=== PATIENT | female | born 1985 | race Caucasian/White ===

== ENCOUNTER → 2024-06-06 | Outpatient (CLI) | payer BC, SELFPAY ==
[2024-06-06 12:55] LABS: Absolute Lymphocyte Count 2.44 X10^3/uL (0.83-4.51); Absolute Neutrophil Count 5.5 X10^3/uL (2.0-7.7); Basophil# 0.06 X10^3/uL; Basophil% 0.7 % (0-1); Eosinophil# 0.14 X10^3/uL; Eosinophils% 1.6 % (0-5); Hematocrit 38.8 % (37-47); Lymphocyte # 2.44 X10^3/ul (0.83-4.51); Lymphocyte % 27.8 % (19-41); Mean Corp Hgb Conc 33.5 g/dL (32-36); Mean Corpuscular Hgb 31.5 pg (27.0-32.0); Mean Corpuscular Volume 93.9 fL (81-99); Mean Platelet Vol. 9.7 fl (6.2-12.0); Monocyte# 0.61 X10^3/uL; Monocyte% 6.9 % (0-10); NRBC Flagged by Analyzer 0 % (0-5); Neutrophil # 5.51 X10^3/uL (2.7-7.7); Neutrophil % 62.8 % (47-70); Platelet Count 350 K/mm3 (150-450); RBC Distribution Width CV 12.5 % (11.6-14.6); RBC Distribution Width SD 42.8 fl (35.1-43.9); Red Blood Count 4.13 M/mm3 (4.2-5.4); White Blood Count 8.8 K/mm3 (4.4-11.0)
[2024-06-06 14:08] LABS: ALB/GLOB Ratio 0.8 RATIO (0.9-2.4); AST(SGOT) 17 U/L (15-37); Alanine Aminotransfer ALT/SGPT 37 U/L (13-56); Albumin, Serum 3.5 g/dL (3.2-5.0); Alkaline Phosphatase 135 U/L (45-117); Anion Gap 9 (5-15); BUN 12 mg/dL (7-18); BUN/Creat Ratio 12.9 RATIO (10-20); Calcium,Total 8.8 mg/dL (8.5-10.1); Chloride 106 mmol/L (98-107); Cholesterol 196 mg/dL (200); Creatinine, Serum 0.93 mg/dL (0.55-1.02); EST Glomerular Filtration Rate 71 mL/min (>60); Est Glom Filt Rate - Afr Amer 86 mL/min (>60); Globulin 4.2 g/dL (2.2-4.2); Glucose 118 mg/dL (74-106); High Density Lipoprotein 58 mg/dL; Potassium 3.7 mmol/L (3.5-5.1); Protein, Total 7.7 g/dL (6.4-8.2); Sodium Level 137 mmol/L (136-145); T4 Free Direct 0.99 ng/dL (0.76-1.46); Triglycerides 115 mg/dL; Very Low Density Lipoprotein 23 mg/dL (5-40)
[2024-06-06 17:00] LABS: Hemoglobin A1c 5.4 % (3.8-5.6)
== END | disposition home or self-care (01) ==
LOC: BFHLAB 08:49
PROVIDERS: PCP Family Medicine; Visit Provider Family Medicine
DX: Z00.00 Encounter for general adult medical examination without abnormal findings (principal); R63.5 Abnormal weight gain
CPT/HCPCS: 36415; 80053; 80061; 82533; 83036; 84439; 84443; 85025

== ENCOUNTER → 2025-02-13 | Outpatient (CLI) | payer BC, SELFPAY ==
[2025-02-13 15:13] LABS: Hematocrit 41.0 % (37-47); Hemoglobin 14.2 g/dL (12.0-15.0); Immature Granulocytes Count 0.030 X10^3/uL (0.0-0.0); Mean Corp Hgb Conc 34.6 g/dL (32-36); Mean Corpuscular Volume 94.3 fL (81-99); Mean Platelet Vol. 10.0 fl (6.2-12.0); NRBC Flagged by Analyzer 0 % (0-5); Platelet Count 369 K/mm3 (150-450); RBC Distribution Width CV 11.6 % (11.6-14.6); RBC Distribution Width SD 39.9 fl (35.1-43.9); Red Blood Count 4.35 M/mm3 (4.2-5.4); White Blood Count 10.9 K/mm3 (4.4-11.0)
[2025-02-13 15:30] LABS: Barbiturate Urine NEGATIVE (< 200 ng/mL); Benzodiazepine Urine NEGATIVE (< 200 ng/mL); PCP Urine NEGATIVE (< 25 ng/mL); THC Urine NEGATIVE (< 50 ng/mL)
[2025-02-13 15:32] LABS: AST(SGOT) 25 U/L (<=31); Alanine Aminotransfer ALT/SGPT 21 U/L (<=34); Albumin, Serum 4.4 g/dL (3.5-5.0); Alkaline Phosphatase 85 U/L (35-104); Anion Gap 12 (5-15); BUN 6 mg/dL (4-19); BUN/Creat Ratio 4.7 RATIO (10-20); Calcium,Total 9.6 mg/dL (7.6-11.0); Carbon Dioxide 23.6 mmol/L (21.0-32.0); Chloride 100 mmol/L (98-108); Cholesterol 165 mg/dL (<=200); Globulin 3.4 g/dL (2.2-4.2); Glucose 80 mg/dL (70-99); Low Density Lipoprotein Calc. 99 mg/dL; Potassium 4.0 mmol/L (3.3-5.1); Triglycerides 67 mg/dL; Very Low Density Lipoprotein 13 mg/dL (5-40); Vitamin D,25 Hydroxy 66.5 ng/mL (30-100); cholesterol:hdl ratio screen 3.13
== END | disposition home or self-care (01) ==
LOC: MTLAB 12:58
PROVIDERS: PCP Family Medicine
DX: F90.0 Attention-deficit hyperactivity disorder, predominantly inattentive type (principal)
CPT/HCPCS: 36415; 80053; 80061; 80307; 82306; 84443; 85025

== ENCOUNTER → 2025-03-13 | Outpatient (CLI) | payer BC, SELFPAY ==
--- NOTE | 2025-03-13 08:43 | EKG12_ITS ---
Test Reason : ADHD Blood Pressure : */* mmHG Vent. Rate : 71 BPM Atrial Rate : 71 BPM P-R Int : 138 ms QRS Dur : 84 ms QT Int : 376 ms P-R-T Axes : 42 71 47 degrees QTcB Int : 408 ms Normal sinus rhythm Normal ECG No previous ECGs available Confirmed by Claudio Valdez ([id number]), index editor REGGIE VIVAS ([id number]) on 03/16/2025 1:08:24 PM Referred By: TRAE IRVING Confirmed By: Claudio Valdez
--- OUTSIDE RECORDS SUMMARY | 2025-03-13 09:04 | XMS RPT_ITS | CCD ---
Author Organization [facility] Care Team Providers Care Operations Advisor Name Role Phone JOEY VALLEJO Unavailable Unavailable ZINNI, JOEY A Unavailable Unavailable ZINNI, JOEY A Unavailable Unavailable ZINNI, OJEY A Unavailable Unavailable ZINNI, JOEY A Unavailable Unavailable ZINNI, JOEY A Unavailable Unavailable ZINNI, JOEY A Unavailable Unavailable GENEVIEVE, JOEY Whitehead Unavailable Unavailable Anna Whittaker MD Primary Care Provider Anna Whittaker MD Primary Care Provider Duc Day DO Primary Care Provider ANNA WHITTAKER Primary Care Unavailable DUC DAY Primary Care Unavailable GUTIERREZ AHUMADA Referring Unavailable DUC DAY Primary Care Unavailable ANNA WHITTAKER Primary Care Unavailable SHAYDUC KWON Primary Care Unavailable SHAY, DUC A Primary Care Unavailable GUTIERREZ AHUMADA Referring Unavailable Shay, Duc Primary Care Unavailable Shay, Duc Attending Unavailable JUSTINA LARKNI Attending Unavailable JUSTINA LARKIN Referring Unavailable Shay, Duc Primary Care Unavailable JUSTINA LARKIN Attending Unavailable JUSTINA LARKIN Referring Unavailable Shay, Duc Primary Care Unavailable Shay, Duc Primary Care Unavailable Shay, Duc Referring Unavailable Camillus, Ammy Attending Unavailable Maame, Ammy Attending Unavailable Camillus, Ammy Referring Unavailable Shay, Duc Primary Care Unavailable Maame, Ammy Referring Unavailable Shay, Duc Primary Care Unavailable Camillus, Ammy Attending Unavailable Judy Del Castillo Attending Unavailable Shay, Duc Primary Care Unavailable Allergies Allergy Classification Reported Allergen(s) Allergy Type Date of Onset Reaction(s) Facility (9 sources) codeine; Translations: [CODEINE] Drug Allergy 06-24-2013 Rash [facility] Other [place] [facility] (9 sources) nortriptyline; Translations: [NORTRIPTYLINE] Drug Allergy 07-03-2013 Unknown [facility] [place] Repository (10 sources) topiramate; Translations: [TOPIRAMATE] Drug Allergy 06-24-2013 Rash [facility] [place] Repository Medications Current Medications Medication Drug Class(es) Dates Sig (Normalized) Sig (Original) acetaminophen 325 mg / butalbital 50 mg / caffeine 40 mg oral tablet (14 sources) Barbiturate, Central Nervous System Stimulant, Methylxanthine Start: 09-08-2016 take 1 tablet by mouth every eight hours as needed acetaminophen 325 mg-caffeine 40 mg-butalbital 50 mg (FIORICET) per tablet Take 1 tablet by mouth every 8 hours as needed for Headache. 30 tablet 1 06/15/2017 Active Comment on above: Take 1 tablet by disha every 8 hours as needed for Headache. amoxicillin 500 mg oral capsule (1 source) Penicillin-class Antibacterial Start: 08-10-2023 End: 08-20-2023 take 1 capsule by mouth twice daily amoxicillin (AMOXIL) 500 mg capsule Take 1 capsule by mouth two times a day for 10 days. 20 capsule 0 08/10/2023 08/20/2023 Active Comment on above: Take 1 capsule by mo [facility] two times a day for 10 days. clonazePAM 1 mg oral tablet (7 sources) Benzodiazepine Start: 06-11-2017 take 1 tablet by mouth four times daily clonazePAM (KLONOPIN) 1 mg tablet Indications: Social anxiety disorder take 1 tablet by mouth four times a day 120 tablet 2 06/11/2017 Active Comment on above: take 1 tablet by disha four times a day doxycycline monohydrate 100 mg oral tablet (1 source) Tetracycline-class Drug Start: 02-25-2024 End: 03-03-2024 take 1 tablet by mouth twice daily doxycycline monohydrate 100 mg tablet Indications: Lower resp. tract infection Take 1 tablet by mouth two times a day for 7 days. 14 tablet 02/25/2024 03/03/2024 Active drospirenone / Ethinyl Estradiol (7 sources) Progestin, Estrogen Start: 11-30-2016 Drospirenone-Ethin yl Estradiol 3-0.03 mg per tablet 1 11/30/2016 Active Start: 11-30-2016 Drospirenone-E thinyl Estradiol 3-0.03 mg per tablet FLUoxetine 40 mg oral capsule (14 sources) Serotonin Reuptake Inhibitor Start: 06-07-2018 take 1 capsule by mouth once daily FLUoxetine HCl (PROZAC) 40 mg capsule TAKE 1 CAPSULE BY MOUTH EVERY DAY 30 capsule 1 06/07/2018 Active Start: 02-19-2017 take 1 capsule by mo uth once daily, then take 2 capsules by mouth once daily FLUoxetine (PROZAC) 20 mg capsule Take 1 capsule by mouth once daily. for two weeks and then increase to two (2) daily (=40 mg ) 60 capsule 1 02/19/2017 Active Comment on above: Take 1 capsule by mo uth once daily. for two weeks and then increase to two (2) daily (=40 mg ) TAKE 1 CAPSULE BY MO UTH EVERY DAY folic acid 1 mg oral tablet (7 sources) Start: take 4 tablets by mouth once daily folic acid 1 mg tablet Take 4 tablets by mouth once daily. 360 tablet 1 10/16/2017 Active Comment on above: Take 4 tablets by mo uth once daily. INTRAUTERINE DEVICE, IUD, INTRAUTERINE (4 sources) INTRAUTERINE DEV ICE, IUD, INTRAUTERINE by INTRAUTERINE route. Active lamoTRIgine 200 mg oral tablet (7 sources) Mood Stabilizer, Anti-epileptic Agent Start: lamoTRIgine (LAMICTAL) 200 mg tablet Take 1.5 tabs AM and 2 tabs PM 315 tablet 02/11/2018 Active Comment on above: Take 1.5 tabs AM and 2 tabs PM lisdexamfetamine dimesylate 70 mg oral capsule (7 sources) Central Nervous System Stimulant Start: take 1 capsule by mouth once daily lisdexamfetamine (VYVANSE) 70 mg capsule Indications: ADHD (attention deficit hyperactivity disorder), combined type Take 1 capsule by mouth once daily for 30 days. Earliest Fill Date: 05/27/17 30 capsule 05/27/2017 Active Comment on above: Take 1 capsule by mo uth once daily for 30 days. Earliest Fill Date: 05/27/17 norethindrone 0.35 mg oral tablet (7 sources) Start: 016 take 1 tablet by mouth once daily Norethindrone, Contraceptive, (DEBLITANE) 0.35 mg tablet Take 1 tablet by mouth once daily. 0 09/02/2015 Active Comment on above: Take 1 tablet by disha th once daily. spironolact/hydrochlorot hiazid (SPIRONOLACTON-HYDROCHLO ROTHIAZ ORAL) (6 sources) spironolact/hydr ochloro thiazid (SPIRONOLACTON-HYDROCHL OROTHIAZ ORAL) Take by mouth. Active spironolact/hydr ochlorothiazid (SPIRONOLACTON-HYDROCHLOROTHIAZ ORAL) Take by mouth. 0 Active Comment on above: Take by mouth. spironolactone 100 mg oral tablet (4 sources) Aldosterone Antagonist Start: 024 take 1 tablet by mouth once spironolactone (ALDACTONE) 100 mg tablet Take 1 tablet by mouth every afternoon. 02/18/2024 Active traZODone hydrochloride 50 mg oral tablet (7 sources) Serotonin Reuptake Inhibitor Start: 018 take 1 tablet by mouth once daily at bedtime traZODone (DESYREL) 50 mg tablet Take 1 tablet by mouth daily at bedtime. 30 tablet 5 05/16/2017 Active Comment on above: Take 1 tablet by disha th daily at bedtime. venlafaxine (6 sources) Serotonin and Norepinephrine Reuptake Inhibitor venlafaxine HCl (EFFEXOR ORAL) Take by mouth. Active venlafaxine HCl (EFFEXOR ORAL) Take by mouth. 0 Active Comment on above: Take by mouth. Problems Active Problems Problem Classification Problem Date Documented Date Episodic/Chronic Anxiety disorders (19 sources) Anxiety; Translations: [Anxiety disorder, unspecified] Onset: 01-06-2014 Resolved: 01-06-2014 11-14-2014 Chronic Attention-deficit, conduct, and disruptive behavior disorders (7 sources) Adult attention deficit hyperactivity disorder ; Translations: [Attention-deficit hyperactivity disorder, unspecified type] Onset: 01-06-2014 01-06-2014 Chronic Attention-deficit, conduct, and disruptive behavior disorders (2 sources) Attention-deficit hyperactivity disorder, predominantly inattentive type; Translations: [Attention-deficit hyperactivity disorder, predominantly inattentive type] Onset: 02-26-2025 Chronic Epilepsy; convulsions (7 sources) Epilepsy; Translations: [Epilepsy, unspecified, not intractable, without status epilepticus] Onset: 01-06-2014 02-10-2015 Chronic Headache; including migraine (7 sources) Migraine without aura; Translations: [Migraine without aura, not intractable, without status migrainosus] Onset: 01-06-2014 01-06-2014 Chronic Mood disorders (7 sources) Recurrent major depression in full remission; Translations: [Major depressive disorder, recurrent, in full remission] Onset: 05-10-2015 05-10-2015 Chronic Other injuries and conditions due to external causes (1 source) Injury of left lower leg; Translations: [Unspecified injury of left lower leg, initial encounter] 04-08-2024 Episodic Other lower respiratory disease (1 source) Cough; Translations: [Acute cough] 02-25-2024 Episodic Other lower respiratory disease (1 source) Lower respiratory tract infection; Translations: [Unspecified acute lower respiratory infection] 02-25-2024 Episodic Other upper respiratory infections (2 sources) Sore throat symptom; Translations: [Acute pharyngitis, unspecified] 02-25-2024 Episodic Unclassified (1 source) Unknown / UNK(Unknown) Onset: 06-21-2017 Past or Other Problems Problem Classification Problem Date Documented Da te Episodic/Chronic Immunizations and screening for infectious disease (3 sources) Patient encounter status; Translations: [Encounter for immunization] Onset: 08-05-2024 01-17-2024 Episodic Other screening for suspected conditions (not mental disorders or infectious disease) (1 source) Encounter for screening mammogram for malignant neoplasm of breast; Translations: [Encounter for screening mammogram for malignant neoplasm of breast] Onset: 06-19-2024 Episodic Results Test Name Value Interpretation Reference Range Facility CBC W/Diff, Automatedon 10-1 Absolute Lymph 2.47 X10 3/uL Normal 0.83-4.51 [facility] Comment on above: Performed By: #### L [id number], L500.4100, L501.9985, L509.6000, L500.4050, L100.0100, L506.0400 #### [facility] [address] [place], [place], [id number] Absolute Neut 7.6 X10 3/uL Normal 2.0-7.7 [facility] Comment on above: Performed By: #### L [id number], L500.4100, L501.9985, L509.6000, L500.4050, L100.0100, L506.0400 #### [facility] [address] [place], [address] Basophils/100 WBC (Bld) 0.5 % Normal 0-1 [facility] Comment on above: Performed By: #### L [id number], L500.4100, L501.9985, L509.6000, L500.4050, L100.0100, L506.0400 #### [facility] [address] [place], [address] Eosinophils/100 WBC (Bld) 0.8 % Normal 0-5 [facility] Comment on above: Performed By: #### L [id number], L500.4100, L501.9985, L509.6000, L500.4050, L100.0100, L506.0400 #### [facility] [address] [place], [address] Erythrocyte distribution width (RBC) [Ratio] 11.6 % Normal 11.6-14.6 [facility] Comment on above: Performed By: #### L 501.9520, L500.4100, L501.9985, L509.6000, L500.4050, L100.0100, L506.0400 #### [facility] [address] [place], [address] Hematocrit (Bld) [Volume fraction] 41.0 % Normal 37-47 [facility] Comment on above: Performed By: #### L [id number], L500.4100, L501.9985, L509.6000, L500.4050, L100.0100, L506.0400 #### [facility] [address] [place], [address] Hemoglobin (Bld) [Mass/Vol] 14.2 g/dL Normal 12.0-15.0 [facility] Comment on above: Performed By: #### L 501.9520, L500.4100, L501.9985, L509.6000, L500.4050, L100.0100, L506.0400 #### [facility] [address] [place], [address] IG% 0.300 Normal 0.0-0.9 [facility] Comment on above: Result Comment: IG% - Immature Granulocytes (promyelocytes, myelocytes and metamyelocytes) > 1% indicates that a LEFT SHIFT is Present. Performed By: #### L 501.9520, L500.4100, L501.9985, L509.6000, L500.4050, L100.0100, L506.0400 #### [facility] [address] [place], [address] Lymphocytes/100 WBC (Bld) 22.6 % Normal 19-41 [facility] Comment on above: Performed By: #### L 501.9520, L500.4100, L501.9985, L509.6000, L500.4050, L100.0100, L506.0400 #### [facility] [address] [place], [address] MCH (RBC) [Entitic mass] 32.6 pg High 27.0-32.0 [facility] Comment on above: Performed By: #### L 501.9520, L500.4100, L501.9985, L509.6000, L500.4050, L100.0100, L506.0400 #### [facility] [address] [place], [address] MCHC (RBC) [Mass/Vol] 34.6 g/dL Normal 32-36 [facility] Comment on above: Performed By: #### L 501.9520, L500.4100, L501.9985, L509.6000, L500.4050, L100.0100, L506.0400 #### [facility] [address] [place], [address] MCV (RBC) [Entitic vol] 94.3 fL Normal 81-99 [facility] Comment on above: Performed By: #### L 501.9520, L500.4100, L501.9985, L509.6000, L500.4050, L100.0100, L506.0400 #### [facility] [address] [place], [address] Monocytes/100 WBC (Bld) 6.3 % Normal 0-10 [facility] Comment on above: Performed By: #### L 501.9520, L500.4100, L501.9985, L509.6000, L500.4050, L100.0100, L506.0400 #### [facility] [address] [place], [address] Neutrophils/100 WBC (Bld) 69.5 % Normal 47-70 [facility] Comment on above: Performed By: #### L 501.9520, L500.4100, L501.9985, L509.6000, L500.4050, L100.0100, L506.0400 #### [facility] [address] [place], [address] Nucleated RBC (Bld) [#/Vol] 0 10*3/uL Normal 0-5 [facility] Comment on above: Performed By: #### L 501.9520, L500.4100, L501.9985, L509.6000, L500.4050, L100.0100, L506.0400 #### [facility] [address] [place], [address] Platelet mean volume (Bld) [Entitic vol] 10.0 fL Normal 6.2-12.0 [facility] Comment on above: Performed By: #### L 501.9520, L500.4100, L501.9985, L509.6000, L500.4050, L100.0100, L506.0400 #### [facility] [address] [place], [address] Platelets (Bld) [#/Vol] 369 10*3/uL Normal 150-450 [facility] Comment on above: Performed By: #### L 501.9520, L500.4100, L501.9985, L509.6000, L500.4050, L100.0100, L506.0400 #### [facility] [address] [place], [address] RBC (Bld) [#/Vol] 4.35 10*6/uL Normal 4.2-5.4 [facility] Comment on above: Performed By: #### L 501.9520, L500.4100, L501.9985, L509.6000, L500.4050, L100.0100, L506.0400 #### [facility] [address] [place], [address] RDW SD 39.9 fl Normal 35.1-43.9 [facility] Comment on above: Performed By: #### L 501.9520, L500.4100, L501.9985, L509.6000, L500.4050, L100.0100, L506.0400 #### [facility] [address] [place], [address] WBC (Bld) [#/Vol] 10.9 10*3/uL Normal 4.4-11.0 [facility] Comment on above: Performed By: #### L 501.9520, L500.4100, L501.9985, L509.6000, L500.4050, L100.0100, L506.0400 #### [facility] [address] [place], [address] Comprehensive Metabolic [facility] 02-13-2025 Albumin [Mass/Vol] 4.4 g/dL Normal 3.5-5.0 [facility] Comment on above: Performed By: #### L 501.9520, L500.4100, L501.9985, L509.6000, L500.4050, L100.0100, L506.0400 #### [facility] [address] [place], [address] Albumin/Globulin [Mass ratio] 1.3 {ratio} Normal 0.9-2.4 [facility] Comment on above: Performed By: #### L 501.9520, L500.4100, L501.9985, L509.6000, L500.4050, L100.0100, L506.0400 #### [facility] [address] [place], [address] ALK PHOS 85 U/L Normal 35-104 [facility] Comment on above: Performed By: #### L 501.9520, L500.4100, L501.9985, L509.6000, L500.4050, L100.0100, L506.0400 #### [facility] [address] [place], [address] ALT [Catalytic activity/Vol] 21 U/L Normal <=34 [facility] Comment on above: Performed By: #### L 501.9520, L500.4100, L501.9985, L509.6000, L500.4050, L100.0100, L506.0400 #### [facility] [address] [place], [address] AST [Catalytic activity/Vol] 25 U/L Normal <=31 [facility] Comment on above: Performed By: #### L 501.9520, L500.4100, L501.9985, L509.6000, L500.4050, L100.0100, L506.0400 #### [facility] [address] [place], [address] Bilirubin [Mass/Vol] 0.38 mg/dL Normal 0.00-1.30 [facility] Comment on above: Performed By: #### L 501.9520, L500.4100, L501.9985, L509.6000, L500.4050, L100.0100, L506.0400 #### [facility] [address] [place], [address] BUN/CRE 4.7 RATIO Low 10-20 [facility] Comment on above: Performed By: #### L 501.9520, L500.4100, L501.9985, L509.6000, L500.4050, L100.0100, L506.0400 #### [facility] [address] [place], [address] Calcium [Mass/Vol] 9.6 mg/dL Normal 7.6-11.0 [facility] Comment on above: Performed By: #### L 501.9520, L500.4100, L501.9985, L509.6000, L500.4050, L100.0100, L506.0400 #### [facility] [address] [place], [address] Chloride [Moles/Vol] 100 mmol/L Normal 98-108 [facility] Comment on above: Performed By: #### L 501.9520, L500.4100, L501.9985, L509.6000, L500.4050, L100.0100, L506.0400 #### [facility] [address] [place], [address] CO2 [Moles/Vol] 23.6 mmol/L Normal 21.0-32.0 [facility] Comment on above: Performed By: #### L 501.9520, L500.4100, L501.9985, L509.6000, L500.4050, L100.0100, L506.0400 #### [facility] [address] [place], [address] Creatinine [Mass/Vol] 1.23 mg/dL High 0.70-1.20 [facility] Comment on above: Performed By: #### L 501.9520, L500.4100, L501.9985, L509.6000, L500.4050, L100.0100, L506.0400 #### [facility] [address] [place], [address] GAP 12 Normal 5-15 [facility] Comment on above: Performed By: #### L 501.9520, L500.4100, L501.9985, L509.6000, L500.4050, L100.0100, L506.0400 #### [facility] [address] [place], [address] GFR/1.73 sq M.predicted among non-blacks MDRD (S/P/Bld) [Vol rate/Area] 57 mL/min/{1.73_m2} Low >60 [facility] Comment on above: Result Comment: mL/m in/1.73m2 CKD-EPI Creatinine Equation (2020) Performed By: #### L 501.9520, L500.4100, L501.9985, L509.6000, L500.4050, L100.0100, L506.0400 #### [facility] [address] [place], [address] Globulin (S) [Mass/Vol] 3.4 g/dL Normal 2.2-4.2 [facility] Comment on above: Performed By: #### L 501.9520, L500.4100, L501.9985, L509.6000, L500.4050, L100.0100, L506.0400 #### [facility] [address] [place], [address] Glucose [Mass/Vol] 80 mg/dL Normal 70-99 [facility] Comment on above: Performed By: #### L 501.9520, L500.4100, L501.9985, L509.6000, L500.4050, L100.0100, L506.0400 #### [facility] [address] [place], [address] Potassium [Moles/Vol] 4.0 mmol/L Normal 3.3-5.1 [facility] Comment on above: Performed By: #### L 501.9520, L500.4100, L501.9985, L509.6000, L500.4050, L100.0100, L506.0400 #### [facility] [address] [place], [address] Sodium [Moles/Vol] 136 mmol/L Normal 133-145 [facility] Comment on above: Performed By: #### L 501.9520, L500.4100, L501.9985, L509.6000, L500.4050, L100.0100, L506.0400 #### [facility] [address] [place], [address] T PROT 7.8 g/dL Normal 5.9-8.4 [facility] Comment on above: Performed By: #### L 501.9520, L500.4100, L501.9985, L509.6000, L500.4050, L100.0100, L506.0400 #### [facility] [address] [place], [address] Urea nitrogen [Mass/Vol] 6 mg/dL Normal 4-19 [facility] Comment on above: Performed By: #### L 501.9520, L500.4100, L501.9985, L509.6000, L500.4050, L100.0100, L506.0400 #### [facility] [address] [place], [address] Lipid Profileon 10-10-2025 CHOL:HDL 3.13 Normal [facility] Comment on above: Performed By: #### L 501.9520, L500.4100, L501.9985, L509.6000, L500.4050, L100.0100, L506.0400 #### [facility] [address] [place], [address] Cholesterol [Mass/Vol] 165 mg/dL Normal <=200 [facility] Comment on above: Result Comment: Chol esterol level, Desirable <200 mg/dL Borderline high cholesterol 200-239 mg/dL High cholesterol >=240 mg/dL Recommendations of the NCEP Adult Treatment Panel for the following risk-cutoff thresholds for the [place] population. Performed By: #### L 501.9520, L500.4100, L501.9985, L509.6000, L500.4050, L100.0100, L506.0400 #### [facility] [address] [place], [address] Cholesterol in HDL [Mass/Vol] 53 mg/dL Normal [facility] Comment on above: Result Comment: Stacey onal Cholesterol Education Program (NCEP) guidelines: <40 mg/dL: Low HDL-cholesterol (major risk factor for CHD) >= 60 mg/dL: High HDL-cholesterol (negative risk factor for CHD) HDL-cholesterol is affected by a number of factors, e.g. smoking, exercise, hormones, sex and age. Performed By: #### L 501.9520, L500.4100, L501.9985, L509.6000, L500.4050, L100.0100, L506.0400 #### [facility] [address] [place], [address] Cholesterol in LDL [Mass/Vol] 99 mg/dL Normal [facility] Comment on above: Result Comment: Bord tijmzu=830-446 mg/dL Higher Lxzh=929 mg/dL or greater Friedwald Equation for LDL-C Performed By: #### L 501.9520, L500.4100, L501.9985, L509.6000, L500.4050, L100.0100, L506.0400 #### [facility] [address] [place], [address] Cholesterol in VLDL [Mass/Vol] 13 mg/dL Normal 5-40 [facility] Comment on above: Performed By: #### L 501.9520, L500.4100, L501.9985, L509.6000, L500.4050, L100.0100, L506.0400 #### [facility] [address] [place], [address] Triglyceride [Mass/Vol] 67 mg/dL Normal [facility] Comment on above: Result Comment: The drugs N-Acetylcysteine and Metamizole may falsely depress this assay. Normal range: <150 mg/dL Borderline High: 150-199 mg/dL High: 200-499 mg/dL Very High: >500 mg/dL Performed By: #### L 501.9520, L500.4100, L501.9985, L509.6000, L500.4050, L100.0100, L506.0400 #### [facility] [address] [place], [address] Thyroid Stim Hormone (TSH)on 02-13-2025 TSH 1.440 uIU/mL Normal 0.300-4.200 [facility] Comment on above: Performed By: #### L 501.9520, L500.4100, L501.9985, L509.6000, L500.4050, L100.0100, L506.0400 #### [facility] [address] [place], [address] Urine Drug Screen (VISTA)on 02-13-2025 AMPHETAMINES Negative Normal <1000 ng/mL [facility] Comment on above: Order Comment: N Performed By: #### L 501.9520, L500.4100, L501.9985, L509.6000, L500.4050, L100.0100, L506.0400 #### [facility] [address] [place], [address] BARBITIURATES Negative Normal < 200 ng/mL [facility] Comment on above: Order Comment: N Performed By: #### L 501.9520, L500.4100, L501.9985, L509.6000, L500.4050, L100.0100, L506.0400 #### [facility] [address] [place], [address] BENZODIAZIPINE Negative Normal < 200 ng/mL [facility] Comment on above: Order Comment: N Performed By: #### L 501.9520, L500.4100, L501.9985, L509.6000, L500.4050, L100.0100, L506.0400 #### [facility] [address] [place], [place], [facility] BUP Ur Drug Scr Negative Normal < 200 ng/mL [facility] Comment on above: Order Comment: N Performed By: #### L 501.9520, L500.4100, L501.9985, L509.6000, L500.4050, L100.0100, L506.0400 #### [facility] [address] [place], [place], [facility] COCAINE Negative Normal < 300 ng/mL [facility] Comment on above: Order Comment: N Performed By: #### L 501.9520, L500.4100, L501.9985, L509.6000, L500.4050, L100.0100, L506.0400 #### [facility] [address] [place], [place], [facility] Fentanyl Negative Normal <5 ng/mL [facility] Comment on above: Order Comment: N Result Comment: CONF IRMATORY TESTING FOR ALL POSITIVE URINE DRUG SCREEN RESULTS WILL ONLY BE SENT OUT UPON PHYSICIAN ORDER. Romy Pro Urine Drug Screen methods provide only preliminary analytical test results. A more specific alternate chemical method must be used in order to obtain a confirmed analytical result. Gas chromatography/mass spectrometery (GC/MS) is the preferred confirmatory method. Clinical consideration and professional judgement should be applied to any drug of abuse test result, particularly when preliminary positive results are used. Urine TCA testing must be ordered separately. Use test mnemonic: UTCA Performed By: #### L 501.9520, L500.4100, L501.9985, L509.6000, L500.4050, L100.0100, L506.0400 #### [facility] [address] [place], [address] METHADONE Negative Normal < 300 ng/mL [facility] Comment on above: Order Comment: N Performed By: #### L 501.9520, L500.4100, L501.9985, L509.6000, L500.4050, L100.0100, L506.0400 #### [facility] [address] [place], [place], [facility] OPIATES Negative Normal < 300 ng/mL [facility] Comment on above: Order Comment: N Performed By: #### L 501.9520, L500.4100, L501.9985, L509.6000, L500.4050, L100.0100, L506.0400 #### [facility] [address] [place], [address] OXYCODONE Negative Normal < 100 ng/mL [facility] Comment on above: Order Comment: N Performed By: #### L 501.9520, L500.4100, L501.9985, L509.6000, L500.4050, L100.0100, L506.0400 #### [facility] [address] [place], [address] PCP Negative Normal < 25 ng/mL [facility] Comment on above: Order Comment: N Performed By: #### L 501.9520, L500.4100, L501.9985, L509.6000, L500.4050, L100.0100, L506.0400 #### [facility] [address] [place], [address] THC Negative Normal < 50 ng/mL [facility] Comment on above: Order Comment: N Performed By: #### L 501.9520, L500.4100, L501.9985, L509.6000, L500.4050, L100.0100, L506.0400 #### [facility] [address] [place], [address] Vitamin D,25 Hydroxyon 02-13 Vitamin D 25-OH 66.5 ng/mL Normal 30-100 [facility] Comment on above: Result Comment: Cindy min D Status Deficiency: <20 ng/mL (50nmol/L) Insufficiency: 20-30 ng/mL (50-75 nmol/L) Sufficiency: 30-100 ng/mL (75-250 nmol/L) Toxicity: >100 ng/mL (>250 nmol/L) Performed By: #### L 501.9520, L500.4100, L501.9985, L509.6000, L500.4050, L100.0100, L506.0400 #### [facility] [address] [place], [address] Chlamydia/GC RAMON aptimaon CHLAMY,NUC ACID Negative Normal Negative [facility] Comment on above: Performed By: #### L 7000.1800 #### [facility] [address] [place], [address] GC BY NUC ACID Negative Normal Negative [facility] Comment on above: Result Comment: Perf ormed at: =G - [facility] [address] [place] [id number] Pier Master Assistant: Marilou Tracey MD, Phone: [phone] Performed By: #### L 7000.1800 #### [facility] [address] 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: No Is patient in pain?: No Allergies topiramate (From Topamax) Allergy (Verified 07/15/24 15:24) Rash Medications ???Medication ???Instructions ???Recorded ???Confirmed ???Type venlafaxine 75 mg capsule,extended 75 mg PO DAILY 07/05/21 07/15/24 History release 24 hr (Effexor XR) lamotrigine 25 mg tablet (Lamictal) 25 mg PO DAILY #90 tabs 3 07/15/24 Rx Is last menstrual period known: Yes Last Menstrual Period: 07/02/24 Post menopausal: No Patient : No : No Control Method: Mirena [facility] Medical History Bilateral headaches Surgical History History of delivery History of appendectomy Social History Smoking Status: Former smoker alcohol intake: never substance use type: does not use caffeine: Yes what type of physical activity do you participate in: running and weight training frequency: 3-4 times per week seatbelt use: always do you feel safe at home: Yes additional social history: Going through Divorce History 2 Elective abortions Hx Para 2 Spontaneous abortions Hx # Term Pregnancies Ectopic pregnancies Hx # Pregnancies Multiple births # of living children Past Pregnancies Del. Date Name GA/Weeks Outcome Route Bth Weight Infant Gen Labor Lgth Anesthesia Del Locatn Provider FOB Unknown [place] Unknown [place] HPI Encounter for routine gynecological examination Details: BHAVIN WIGGINS is a 39 year old who presents for annual exam. New sexual partner. Light monthly menses with mirena IUD. Last PAP: 2021 History of abnormal PAP: no Last mammogram: 05/2024 History of abnormal mammogram: no Colon cancer screening: age 44 Other preventative health care screenings: [facility] Female Reproductive History Last Menstrual Period: 07/02/24 Cycle Length: 21-35 Questions: metorrhagia: No, sexually active: Yes, dyspareunia: No and PCB: No ROS Const Constitutional: Denies fatigue, weight gain or weight loss Cardio Card: Denies chest pain Resp Resp: Denies cough or dyspnea on exertion GI GI: Denies abdominal pain, bloating, change in stool character, constipation or vomiting : Reports as per HPI; Denies difficulty voiding, pelvic pain, urinary frequency, urinary incontinence, urinary urgency, vaginal discharge or vaginal pruritus Exam Const General: cooperative, healthy appearing, no acute distress and well developed Orientation: alert, oriented to person and oriented to place HENMT Head: normal to inspection Neck Neck: normal visual inspection Thyroid: thyroid normal Lymphatic: no lymphadenopathy noted Chest Breast inspection: normal inspection of the breasts and normal inspection of the axillae Breast palpation: normal palpation of the breasts, normal palpation of the axillae and no axillary lymphadenopathy Resp Effort Inspection: normal respiratory effort GI Palpation: soft, no masses and nontender Rectal Exam: deferred External Female Exam: normal external appearance and normal appearance of the urethra Urethra: normal appearance of the urethra and normal palpation Speculum Exam - Vagina: normal appearance of the vagina and normal vaginal discharge Speculum Exam - Cervix: normal appearance of the cervix Bimanual Exam- Vagina Uterus: normal bimanual exam, uterine size normal, uterine shape normal and non-tender Bimanual Exam- Adnexa, other: normal adnexae, no masses, normal and non-tender Pelvic Support: normal Neuro General: patient alert and patient oriented x3 Psych Affect: normal affect Coding Level of Care Code Off vis,est,prev 40-64yrs Diagnoses Encounter for gynecological examination without abnormal finding Z01.419 Gynecological examination findings: abnormal findings ABSENT Possible exposure to STD Z20.2 Assessment and Plan Assessment and Plan (1) Encounter for routine gynecological examination: Qualifiers: Gynecological examination findings: abnormal findings ABSENT Qualified Code(s): Z01.419 - Encounter for gynecological examination (general) (routine) without abnormal findings (more content not included)... Normal [facility] CORTISOL SERUMon 06-07-2024 CORTISOL 12.20 ug/dL Normal 3.44-22.45 [facility] Comment on above: Result Comment: Adul t (AM) 5.27 - 22.45 ug/dL Adult (PM) 3.44 - 16.76 ug/dL Performed By: #### L 501.9520, L500.4100, L501.9985, L509.6000, L500.4050, L100.0100, L506.0400 #### [facility] [address] [place], [address] CBC W/Diff, Automatedon 05-09 Absolute Lymph 2.44 X10 3/uL Normal 0.83-4.51 [facility] Comment on above: Performed By: #### L 501.9520, L500.4100, L501.9985, L509.6000, L500.4050, L100.0100, L506.0400 #### [facility] [address] [place], [address] Absolute Neut 5.5 X10 3/uL Normal 2.0-7.7 [facility] Comment on above: Performed By: #### L 501.9520, L500.4100, L501.9985, L509.6000, L500.4050, L100.0100, L506.0400 #### [facility] [address] [place], [address] Basophils/100 WBC (Bld) 0.7 % Normal 0-1 [facility] Comment on above: Performed By: #### L 501.9520, L500.4100, L501.9985, L509.6000, L500.4050, L100.0100, L506.0400 #### [facility] [address] [place], [address] Eosinophils/100 WBC (Bld) 1.6 % Normal 0-5 [facility] Comment on above: Performed By: #### L 501.9520, L500.4100, L501.9985, L509.6000, L500.4050, L100.0100, L506.0400 #### [facility] [address] [place], [address] Erythrocyte distribution width (RBC) [Ratio] 12.5 % Normal 11.6-14.6 [facility] Comment on above: Performed By: #### L 501.9520, L500.4100, L501.9985, L509.6000, L500.4050, L100.0100, L506.0400 #### [facility] [address] [place], [address] Hematocrit (Bld) [Volume fraction] 38.8 % Normal 37-47 [facility] Comment on above: Performed By: #### L 501.9520, L500.4100, L501.9985, L509.6000, L500.4050, L100.0100, L506.0400 #### [facility] [address] [place], [address] Hemoglobin (Bld) [Mass/Vol] 13.0 g/dL Normal 12.0-15.0 [facility] Comment on above: Performed By: #### L 501.9520, L500.4100, L501.9985, L509.6000, L500.4050, L100.0100, L506.0400 #### [facility] [address] [place], [address] IG% 0.200 Normal 0.0-0.9 [facility] Comment on above: Result Comment: IG% - Immature Granulocytes (promyelocytes, myelocytes and metamyelocytes) > 1% indicates that a LEFT SHIFT is Present. Performed By: #### L 501.9520, L500.4100, L501.9985, L509.6000, L500.4050, L100.0100, L506.0400 #### [facility] [address] [place], [address] Lymphocytes/100 WBC (Bld) 27.8 % Normal 19-41 [facility] Comment on above: Performed By: #### L 501.9520, L500.4100, L501.9985, L509.6000, L500.4050, L100.0100, L506.0400 #### [facility] [address] [place], [address] MCH (RBC) [Entitic mass] 31.5 pg Normal 27.0-32.0 [facility] Comment on above: Performed By: #### L 501.9520, L500.4100, L501.9985, L509.6000, L500.4050, L100.0100, L506.0400 #### [facility] [address] [place], [address] MCHC (RBC) [Mass/Vol] 33.5 g/dL Normal 32-36 [facility] Comment on above: Performed By: #### L 501.9520, L500.4100, L501.9985, L509.6000, L500.4050, L100.0100, L506.0400 #### [facility] [address] [place], [address] MCV (RBC) [Entitic vol] 93.9 fL Normal 81-99 [facility] Comment on above: Performed By: #### L 501.9520, L500.4100, L501.9985, L509.6000, L500.4050, L100.0100, L506.0400 #### [facility] [address] [place], [address] Monocytes/100 WBC (Bld) 6.9 % Normal 0-10 [facility] Comment on above: Performed By: #### L 501.9520, L500.4100, L501.9985, L509.6000, L500.4050, L100.0100, L506.0400 #### [facility] [address] [place], [address] Neutrophils/100 WBC (Bld) 62.8 % Normal 47-70 [facility] Comment on above: Performed By: #### L 501.9520, L500.4100, L501.9985, L509.6000, L500.4050, L100.0100, L506.0400 #### [facility] [address] [place], [address] Nucleated RBC (Bld) [#/Vol] 0 10*3/uL Normal 0-5 [facility] Comment on above: Performed By: #### L 501.9520, L500.4100, L501.9985, L509.6000, L500.4050, L100.0100, L506.0400 #### [facility] [address] [place], [address] Platelet mean volume (Bld) [Entitic vol] 9.7 fL Normal 6.2-12.0 [facility] Comment on above: Performed By: #### L 501.9520, L500.4100, L501.9985, L509.6000, L500.4050, L100.0100, L506.0400 #### [facility] [address] [place], [address] Platelets (Bld) [#/Vol] 350 10*3/uL Normal 150-450 [facility] Comment on above: Performed By: #### L 501.9520, L500.4100, L501.9985, L509.6000, L500.4050, L100.0100, L506.0400 #### [facility] [address] [place], [address] RBC (Bld) [#/Vol] 4.13 10*6/uL Low 4.2-5.4 [facility] Comment on above: Performed By: #### L 501.9520, L500.4100, L501.9985, L509.6000, L500.4050, L100.0100, L506.0400 #### [facility] [address] [place], [address] RDW SD 42.8 fl Normal 35.1-43.9 [facility] Comment on above: Performed By: #### L 501.9520, L500.4100, L501.9985, L509.6000, L500.4050, L100.0100, L506.0400 #### [facility] [address] [place], [address] WBC (Bld) [#/Vol] 8.8 10*3/uL Normal 4.4-11.0 [facility] Comment on above: Performed By: #### L 501.9520, L500.4100, L501.9985, L509.6000, L500.4050, L100.0100, L506.0400 #### [facility] [address] [place], [address] Comprehensive Metabolic [facility] 06-06-2024 Albumin [Mass/Vol] 3.5 g/dL Normal 3.2-5.0 [facility] Comment on above: Performed By: #### L 501.9520, L500.4100, L501.9985, L509.6000, L500.4050, L100.0100, L506.0400 #### [facility] [address] [place], [address] Albumin/Globulin [Mass ratio] 0.8 {ratio} Low 0.9-2.4 [facility] Comment on above: Performed By: #### L 501.9520, L500.4100, L501.9985, L509.6000, L500.4050, L100.0100, L506.0400 #### [facility] [address] [place], [address] ALK P 135 U/L High 45-117 [facility] Comment on above: Performed By: #### L 501.9520, L500.4100, L501.9985, L509.6000, L500.4050, L100.0100, L506.0400 #### [facility] [address] [place], [address] ALT [Catalytic activity/Vol] 37 U/L Normal 13-56 [facility] Comment on above: Performed By: #### L 501.9520, L500.4100, L501.9985, L509.6000, L500.4050, L100.0100, L506.0400 #### [facility] [address] [place], [address] AST [Catalytic activity/Vol] 17 U/L Normal 15-37 [facility] Comment on above: Performed By: #### L 501.9520, L500.4100, L501.9985, L509.6000, L500.4050, L100.0100, L506.0400 #### [facility] [address] [place], [address] Bilirubin [Mass/Vol] 0.20 mg/dL Normal 0.20-1.00 [facility] Comment on above: Result Comment: For patients on eltrombopag therapy, use of Dimension [place] TBIL is not recommended. Performed By: #### L 501.9520, L500.4100, L501.9985, L509.6000, L500.4050, L100.0100, L506.0400 #### [facility] [address] [place], [address] BUN/CRE 12.9 RATIO Normal 10-20 [facility] Comment on above: Performed By: #### L 501.9520, L500.4100, L501.9985, L509.6000, L500.4050, L100.0100, L506.0400 #### [facility] [address] [place], [address] CA,Total 8.8 mg/dL Normal 8.5-10.1 [facility] Comment on above: Performed By: #### L 501.9520, L500.4100, L501.9985, L509.6000, L500.4050, L100.0100, L506.0400 #### [facility] [address] [place], [address] Chloride [Moles/Vol] 106 mmol/L Normal 98-107 [facility] Comment on above: Performed By: #### L 501.9520, L500.4100, L501.9985, L509.6000, L500.4050, L100.0100, L506.0400 #### [facility] [address] [place], [address] CO2 [Moles/Vol] 22.0 mmol/L Normal 21.0-32.0 [facility] Comment on above: Performed By: #### L 501.9520, L500.4100, L501.9985, L509.6000, L500.4050, L100.0100, L506.0400 #### [facility] [address] [place], [address] Creatinine [Mass/Vol] 0.93 mg/dL Normal 0.55-1.02 [facility] Comment on above: Result Comment: The validity of the calculated GFR GFRAA in patients over 70 years has not been determined. Clinical correlation is essential. Performed By: #### L 501.9520, L500.4100, L501.9985, L509.6000, L500.4050, L100.0100, L506.0400 #### [facility] [address] [place], [address] EST GFR - AA 86 mL/min Normal >60 [facility] Comment on above: Result Comment: Afri can Serbian GFR Calc Performed By: #### L 501.9520, L500.4100, L501.9985, L509.6000, L500.4050, L100.0100, L506.0400 #### [facility] [address] [place], [address] GAP 9 Normal 5-15 [facility] Comment on above: Performed By: #### L 501.9520, L500.4100, L501.9985, L509.6000, L500.4050, L100.0100, L506.0400 #### [facility] [address] [place], [address] GFR/1.73 sq M.predicted among non-blacks MDRD (S/P/Bld) [Vol rate/Area] 71 mL/min/{1.73_m2} Normal >60 [facility] Comment on above: Result Comment: Non- GFR Calc Performed By: #### L 501.9520, L500.4100, L501.9985, L509.6000, L500.4050, L100.0100, L506.0400 #### [facility] [address] [place], [address] Globulin (S) [Mass/Vol] 4.2 g/dL Normal 2.2-4.2 [facility] Comment on above: Performed By: #### L 501.9520, L500.4100, L501.9985, L509.6000, L500.4050, L100.0100, L506.0400 #### [facility] [address] [place], [address] Glucose [Mass/Vol] 118 mg/dL High 74-106 [facility] Comment on above: Result Comment: Fast ing Glucose result from 100 to 125 mg/dL suggests IMPAIRED HOMEOSTASIS per A.D.A. criteria. Performed By: #### L 501.9520, L500.4100, L501.9985, L509.6000, L500.4050, L100.0100, L506.0400 #### [facility] [address] [place], [address] Potassium [Moles/Vol] 3.7 mmol/L Normal 3.5-5.1 [facility] Comment on above: Performed By: #### L 501.9520, L500.4100, L501.9985, L509.6000, L500.4050, L100.0100, L506.0400 #### [facility] [address] [place], [address] Sodium [Moles/Vol] 137 mmol/L Normal 136-145 [facility] Comment on above: Performed By: #### L 501.9520, L500.4100, L501.9985, L509.6000, L500.4050, L100.0100, L506.0400 #### [facility] [address] [place], [address] T PROT 7.7 g/dL Normal 6.4-8.2 [facility] Comment on above: Performed By: #### L 501.9520, L500.4100, L501.9985, L509.6000, L500.4050, L100.0100, L506.0400 #### [facility] [address] [place], [address] Urea nitrogen [Mass/Vol] 12 mg/dL Normal 7-18 [facility] Comment on above: Performed By: #### L 501.9520, L500.4100, L501.9985, L509.6000, L500.4050, L100.0100, L506.0400 #### [facility] [address] [place], [address] Hemoglobin A1con 06-06-2024 HbA1c (Bld) [Mass fraction] 5.4 % Normal 3.8-5.6 [facility] Comment on above: Result Comment: Norm al < 5.7 % Prediabetic 5.7 - 6.4 % Diabetic >or= 6.5 % Please note range changes. Performed By: #### L 501.9520, L500.4100, L501.9985, L509.6000, L500.4050, L100.0100, L506.0400 #### [facility] [address] [place], [address] Lipid Profileon 06-06-2024 Cholesterol [Mass/Vol] 196 mg/dL Normal 200 [facility] Comment on above: Result Comment: <200 mg/dL Desirable 200-240 mg/dL Borderline >240 mg/dL High Risk Performed By: #### L 501.9520, L500.4100, L501.9985, L509.6000, L500.4050, L100.0100, L506.0400 #### [facility] [address] [place], [address] Cholesterol in HDL [Mass/Vol] 58 mg/dL Normal [facility] Comment on above: Result Comment: The drugs N-Acetylcysteine and Metamizole may falsely depress this assay. Reference Range HDL <40 mg/dL Low HDL Cholesterol HDL >or= 60 mg/dL High HDL Cholesterol Performed By: #### L 501.9520, L500.4100, L501.9985, L509.6000, L500.4050, L100.0100, L506.0400 #### [facility] [address] [place], [address] Cholesterol in LDL [Mass/Vol] 115 mg/dL Normal 0-130 [facility] Comment on above: Performed By: #### L 501.9520, L500.4100, L501.9985, L509.6000, L500.4050, L100.0100, L506.0400 #### [facility] [address] [place], [place], [address] Cholesterol in VLDL [Mass/Vol] 23 mg/dL Normal 5-40 [facility] Comment on above: Performed By: #### L 501.9520, L500.4100, L501.9985, L509.6000, L500.4050, L100.0100, L506.0400 #### [facility] [address] [place], [address] Triglyceride [Mass/Vol] 115 mg/dL Normal [facility] Comment on above: Result Comment: The drugs N-Acetylcysteine and Metamizole may falsely depress this assay. Serum Triglycerides Reference Interval Normal <150 mg/dL Borderline high 150 - 199 mg/dL High 200 - 499 mg/dL Very High > or = 500 mg/dL Performed By: #### L 501.9520, L500.4100, L501.9985, L509.6000, L500.4050, L100.0100, L506.0400 #### [facility] [address] [place], [place], [id number] T4 Free Directon 06-06-2024 T4 FREE DIRECT 0.99 ng/dL Normal 0.76-1.46 [facility] Comment on above: Performed By: #### L 501.9520, L500.4100, L501.9985, L509.6000, L500.4050, L100.0100, L506.0400 #### [facility] Laboratory [address] [place], [place], [id number] Thyroid Stim Hormone (TSH)on 06-06-2024 TSH 2.240 uIU/mL Normal 0.358-3.740 [facility] Comment on above: Performed By: #### L 501.9520, L500.4100, L501.9985, L509.6000, L500.4050, L100.0100, L506.0400 #### [facility] Laboratory [address] [place], [place], [address] SCRN MAMM (CAD)W/MAGDALENA BILATo n 05-29-2024 SCRN MAMM (CAD)W/MAGDALENA BILAT [facility] Imaging Services [address] [place] [address] SCRN MAMM (CAD)W/MAGDALENA BILAT MR#: [id number] Acct: [id number] Name: BHAVIN WIGGINS MARITZA Rep #: [id number] : 1985 F 39 From: Trey beck MD PCP: Dr. Duc Day, Status: [facility] Study: SCRN MAMM (CAD)W/MAGDALENA BILAT Date of Exam: 05/08 07/29 Exam# [id number] Ordering Dr: Ammy Isabel HOTBED OPERATOR HOTBED OPERATOR -C 5:[id number] MAMMOGRAPHY - BILATERAL SCREENING REASON FOR EXAM: Female, 39 years old. Routine annual screening examination. PERTINENT HISTORY: Non-contributory. TECHNIQUE: Digital bilateral breast magdalena (3D mammographic acquisition) in the CC and MLO projections. 2-D mediolateral oblique (MLO) and craniocaudad (CC) views of both breasts were obtained. CAD: Full Field Digital Mammography with Computer Added Detection was performed. COMPARISON: None. Baseline examination. FINDINGS: Breast Composition: The breasts are heterogeneously dense, which may obscure small masses. There are no dominant masses or suspicious calcifications. No other significant abnormalities are identified. BI/SCRN MAMM (CAD)W/MAGDALENA BILAT IMPRESSION: Negative screening mammogram. Yearly followup mammogram recommended. (A) ASSESSMENT CATEGORY: BIRADS Category 1: Negative. A letter regarding these results will be sent to the patient by the facility within 30 days. Approximately 10% of breast cancers are not detected by mammography. A normal mammogram should not delay biopsy of a clinically suspicious abnormality. [id number] Electronically Signed: Trey Garber MD at 14:04 EST , CC: ANI Isabel; Dr. Duc Day, Machinist Supervisor Outside: Signed Normal [facility] CNOVon 04-08-2024 [facility] Office Visit (UCWSTR ) BHAVIN WIGGINS ([id number]) 1985 F Date Time Provider Department 04/08/24 9:15 AM GUTIERREZ AHUMADA [facility] During your visit today, we recorded the following information about you: Temperature Pulse Respiration Blood pressure 98.5 degrees 88/minute 18/minute 128/82 Weight 88.4 kg Gutierrez Ahumada APRN.[facility] 04/08/2024 10:59 AM Signed Subjective HPI HPI Bhavin Wiggins is a 38 year old female who presents today for CC of jumped yesterday, heard pop in calf, pain/now. Has tried nothing for relief. Symptoms are worsened by rom/walking. Denies prior injury to calf/left leg. Denies possibility of being . .Patient presents with: left calf pain: Douglas a pop last night playing basket-ball PAST MEDICAL HISTORY Diagnosis Date Epilepsy (HCC) Major depressive disorder, recurrent episode, in full remission (HCC) 05/10/2015 PAST SURGICAL HISTORY Procedure Laterality Date APPENDECTOMY DELIVERY ONLY ALLERGIES Codeine, Nortriptyline, and Topamax [Topiramate] MEDICATIONS spironolactone (ALDACTONE) 100 mg tablet Take 1 tablet by mouth every afternoon. INTRAUTERINE DEVICE, IUD, INTRAUTERINE by INTRAUTERINE route. venlafaxine HCl (EFFEXOR ORAL) Take by mouth. spironolact/hydrochlorothia zid (SPIRONOLACTON-HYDROCHLOROT HIAZ ORAL) Take by mouth. FLUoxetine HCl (PROZAC) 40 mg capsule TAKE 1 CAPSULE BY MOUTH EVERY DAY (Patient not taking: Reported on 08/10/2023) lamoTRIgine (LAMICTAL) 200 mg tablet Take 1.5 tabs AM and 2 tabs PM (Patient not taking: Reported on 08/10/2023) folic acid 1 mg tablet Take 4 tablets by mouth once daily. (Patient not taking: Reported on 08/10/2023) acetaminophen 325 mg-caffeine 40 mg-butalbital 50 mg (FIORICET) per tablet Take 1 tablet by mouth every 8 hours as needed for Headache. (Patient not taking: Reported on 08/10/2023) clonazePAM (KLONOPIN) 1 mg tablet take 1 tablet by mouth four times a day traZODone (DESYREL) 50 mg tablet Take 1 tablet by mouth daily at bedtime. (Patient not taking: Reported on 02/25/2024) lisdexamfetamine (VYVANSE) 70 mg capsule Take 1 capsule by mouth once daily for 30 days. Earliest Fill Date: 05/27/17 FLUoxetine (PROZAC) 20 mg capsule Take 1 capsule by mouth once daily. for two weeks and then increase to two (2) daily (=40 mg ) (Patient not taking: Reported on 08/10/2023) Drospirenone-Ethinyl Estradiol 3-0.03 mg per tablet acetaminophen 325 mg-caffeine 40 mg-butalbital 50 mg (FIORICET) per tablet Take 1 tablet by mouth every 8 hours as needed for Headache. (Patient not taking: Reported on 02/25/2024) Norethindrone, Contraceptive, (DEBLITANE) 0.35 mg tablet Take 1 tablet by mouth once daily. (Patient not taking: Reported on 02/25/2024) No family history on file. Social History Tobacco Use Smoking status: Every Day Current packs/day: 0.50 Average packs/day: 0.5 packs/day for 5.0 years (2.5 ttl pk-yrs) Types: Cigarettes Smokeless tobacco: Never Substance Use Topics Alcohol use: Yes Alcohol/week: 1.0 - 2.0 standard drink of alcohol Types: 1 - 2 Glasses of Wine (5oz) per week Drug use: No ROS Objective Blood pressure 128/82, pulse 88, temperature 36.9 ?C (98.5 ?F), temperature source Tympanic, resp. rate 18, weight 88.4 kg (194 lb 14.2 oz), last menstrual period 07/20/2023, SpO2 97%. Physical Exam Constitutional: General: She is not in acute distress. Appearance: She is not toxic-appearing or diaphoretic. HENT: Head: Normocephalic and atraumatic. Pulmonary: Effort: Pulmonary effort is normal. No accessory muscle usage or respiratory distress. Musculoskeletal: Legs: Neurological: Mental Status: She is alert and oriented to person, place, and time. ASSESSMENT/PLAN: 1. Injury of left lower leg, initial encounter - ICD9: 959.7, ICD10: S89.92XA Concerns for gastroc/achilles tear Xray negative Boot/crutches provided Patient will go to [place] [facility] Pain relief discussed. - XR TIBIA FIBULA 2V AP/LAT LEFT IMPRESSION: No radiographic evidence of acute osseous injury Dictated by : JENNYFER REYES MD - CONSULT TO ORTHOPAEDICS Gutierrez Ahumada APRN.SAILBOAT CAPTAIN Allergies As of Date: 04/08/2024 Noted Allergy Reaction CODEINE 06/24/2013 2 - Rash NORTRIPTYLINE 07/03/2013 16 - Unknown TOPAMAX (TOPIRAMATE) 06/24/2013 2 - Rash Date Reviewed: 04/08/2024 Reviewed by: Sadia Andrade LPN - Fully Assessed Reason for Visit: left calf pain [Other] Cmt: Douglas a pop last night playing basket-ball Primary Visit Diagnosis:Injury of left lower leg, initial encounter [S89.92XA] Order(s):XR TIBIA FIBULA 2V AP/LAT LEFT [0651056] Order #: [id number]. #:[id number] CONSULT TO ORTHOPAEDICS [9026] Order #: [id number]: 1 FUTURE Prescriptions as of 04/08/2024 - spironolactone (ALDACTONE) 100 mg tablet Take 1 tablet by mouth every afternoon. - INTRAUTERINE DEVICE, IUD, I (more content not included)... Normal [facility] XR TIBIA FIBULA 2V AP/LAT LT on 04-08-2024 XR TIBIA FIBULA 2V AP/LAT LT * * *Final Report* * * DATE OF EXAM: Apr 08 2024 10:05AM WOX [id number] - XR TIBIA FIBULA 2V AP/LAT LT / PROCEDURE REASON: Injury of left lower leg, initial encounter * * * * Physician Interpretation * * * * TITLE: XR TIBIA FIBULA 2V AP/LAT LT CLINICAL INDICATION: Injury while playing basketball TECHNIQUE: Frontal and lateral radiographs of the left tibia/fibula COMPARISON: None FINDINGS: No acute fracture or dislocation identified. IMPRESSION: No radiographic evidence of acute osseous injury Machinist Supervisor Outside: [facility] Transcribe Date/Time: Apr 08 2024 10:06A Dictated by : JENNYFER REYES MD This examination was interpreted and the report reviewed and electronically signed by: JENNYFER REYES MD on Apr 08 2024 10:07AM EST [id number] Normal [facility] XR Tibia and Fibula - left A P and Lateralon 04-08-2024 IMPRESSION: No radiographic evidence of acute osseous injury Machinist Supervisor Outside: [facility] Transcribe Date/Time: Apr 08 2024 10:06A Dictated by : JENNYFER REYES MD This examination was interpreted and the report reviewed and electronically signed by: JENNYFER REYES MD on Apr 08 2024 10:07AM EST DIVISION OF RADIOLOGY * * *Final Report* * * DATE OF EXAM: Apr 08 2024 10:05AM WOX [id number] - XR TIBIA FIBULA 2V AP/LAT LT / PROCEDURE REASON: Injury of left lower leg, initial encounter * * * * Physician Interpretation * * * * TITLE: XR TIBIA FIBULA 2V AP/LAT LT CLINICAL INDICATION: Injury while playing basketball TECHNIQUE: Frontal and lateral radiographs of the left tibia/fibula COMPARISON: None FINDINGS: No acute fracture or dislocation identified. DIVISION OF RADIOLOGY Provider, Pricilla [facility] - 04/08/2024 * * *Final Report* * * DATE OF EXAM: Apr 08 2024 10:05AM WOX [id number] - XR TIBIA FIBULA 2V AP/LAT LT / PROCEDURE REASON: Injury of left lower leg, initial encounter * * * * Physician Interpretation * * * * TITLE: XR TIBIA FIBULA 2V AP/LAT LT CLINICAL INDICATION: Injury while playing basketball TECHNIQUE: Frontal and lateral radiographs of the left tibia/fibula COMPARISON: None FINDINGS: No acute fracture or dislocation identified. IMPRESSION IMPRESSION: No radiographic evidence of acute osseous injury Machinist Supervisor Outside: [facility] Transcribe Date/Time: Apr 08 2024 10:06A Dictated by : JENNYFER REYES MD This examination was interpreted and the report reviewed and electronically signed by: JENNYFER REYES MD on Apr 08 2024 10:07AM [facility] Radiology Study observation (narrative) [facility] XR Tibia and Fibula - left A P and LateralOrdered By: Ccf Provider on 04-08-2024 [facility] CNOVon 02-25-2024 CNOV Office Visit (WSTR ) BHAVIN WIGGINS ([id number]) 1985 F Date Time Provider Department 02/25/24 11:45 AM GUTIERREZ AHUMADA [facility] During your visit today, we recorded the following information about you: Temperature Pulse Respiration Blood pressure 98.2 degrees 78/minute 18/minute 118/80 Weight 86.9 kg Gutierrez Ahumada APRN.CNP 02/25/2024 1:15 PM Signed Subjective HPI HPI Bhavingem Wiggins is a 38 year old female who presents today for CC of cough, st, h/a, fever. This started 1 day ago. Has tried otc medication for relief. Symptoms are worsened by nothing. Risk factors pneumonia exposure at home. Denies possibility of being . nonsmoker. .Patient presents with: Cough: Cough, ST, GOMEZ and fever x 1 day PAST MEDICAL HISTORY Diagnosis Date Epilepsy (HCC) Major depressive disorder, recurrent episode, in full remission (HCC) 05/10/2015 PAST SURGICAL HISTORY Procedure Laterality Date APPENDECTOMY DELIVERY ONLY ALLERGIES Codeine, Nortriptyline, and Topamax [Topiramate] MEDICATIONS spironolactone (ALDACTONE) 100 mg tablet Take 1 tablet by mouth every afternoon. spironolact/hydrochlorothia zid (SPIRONOLACTON-HYDROCHLOROT HIAZ ORAL) Take by mouth. INTRAUTERINE DEVICE, IUD, INTRAUTERINE by INTRAUTERINE route. doxycycline monohydrate 100 mg tablet Take 1 tablet by mouth two times a day for 7 days. venlafaxine HCl (EFFEXOR ORAL) Take by mouth. FLUoxetine HCl (PROZAC) 40 mg capsule TAKE 1 CAPSULE BY MOUTH EVERY DAY (Patient not taking: Reported on 08/10/2023) lamoTRIgine (LAMICTAL) 200 mg tablet Take 1.5 tabs AM and 2 tabs PM (Patient not taking: Reported on 08/10/2023) folic acid 1 mg tablet Take 4 tablets by mouth once daily. (Patient not taking: Reported on 08/10/2023) acetaminophen 325 mg-caffeine 40 mg-butalbital 50 mg (FIORICET) per tablet Take 1 tablet by mouth every 8 hours as needed for Headache. (Patient not taking: Reported on 08/10/2023) clonazePAM (KLONOPIN) 1 mg tablet take 1 tablet by mouth four times a day traZODone (DESYREL) 50 mg tablet Take 1 tablet by mouth daily at bedtime. (Patient not taking: Reported on 02/25/2024) lisdexamfetamine (VYVANSE) 70 mg capsule Take 1 capsule by mouth once daily for 30 days. Earliest Fill Date: 05/27/17 FLUoxetine (PROZAC) 20 mg capsule Take 1 capsule by mouth once daily. for two weeks and then increase to two (2) daily (=40 mg ) (Patient not taking: Reported on 08/10/2023) Drospirenone-Ethinyl Estradiol 3-0.03 mg per tablet acetaminophen 325 mg-caffeine 40 mg-butalbital 50 mg (FIORICET) per tablet Take 1 tablet by mouth every 8 hours as needed for Headache. (Patient not taking: Reported on 02/25/2024) Norethindrone, Contraceptive, (DEBLITANE) 0.35 mg tablet Take 1 tablet by mouth once daily. (Patient not taking: Reported on 02/25/2024) No family history on file. Social History Tobacco Use Smoking status: Every Day Current packs/day: 0.50 Average packs/day: 0.5 packs/day for 5.0 years (2.5 ttl pk-yrs) Types: Cigarettes Smokeless tobacco: Never Substance Use Topics Alcohol use: Yes Alcohol/week: 1.0 - 2.0 standard drink of alcohol Types: 1 - 2 Glasses of Wine (5oz) per week Drug use: No Review of Systems Constitutional: Positive for fever. HENT: Positive for congestion and sore throat. Negative for ear pain and nosebleeds. Respiratory: Positive for cough. Negative for shortness of breath and wheezing. Musculoskeletal: Negative for neck pain. Skin: Negative for itching and rash. Neurological: Positive for headaches. Objective Blood pressure 118/80, pulse 78, temperature 36.8 ?C (98.2 ?F), temperature source Tympanic, resp. rate 18, weight 86.9 kg (191 lb 9.3 oz), last menstrual period 07/20/2023, SpO2 98%. Physical Exam Constitutional: General: She is not in acute distress. Appearance: She is not toxic-appearing or diaphoretic. HENT: Head: Normocephalic and atraumatic. Right Ear: Hearing, tympanic membrane, ear canal and external ear normal. Left Ear: Hearing, tympanic membrane, ear canal and external ear normal. Nose: Nose normal. Mouth/Throat: Lips: [place]. Mouth: Mucous membranes are moist. Pharynx: Uvula midline. Posterior oropharyngeal erythema present. No pharyngeal swelling, oropharyngeal exudate or uvula swelling. Eyes: General: Lids are normal. No scleral icterus. Right eye: No discharge. Left eye: No discharge. Conjunctiva/sclera: Conjunctivae normal. Pupils: Pupils are equal, round, and reactive to light. Neck: Trachea: Trachea normal. Cardiovascular: Rate and Rhythm: Normal rate and regular rhythm. Heart sounds: Normal heart sounds. Pulmonary: Effort: Pulmonary effort is normal. Breath sounds: Normal breath sounds. Musculoskeletal: Cervical back: Normal range of motion and neck supple. Lymphadenopathy: Cervical: No cervical adenopathy. Right cervical: No (more content not included)... Normal [facility] STREP A MOLECULAR (POC)on Procedural Control Valid [facility] Strep A (POCT) Negative Negative [facility] XR CHEST 2V FRONTAL/LATon XR CHEST 2V FRONTAL/LAT * * *Final Report* * * DATE OF EXAM: Feb 25 2024 12:01PM WOX [id number] - XR CHEST 2V FRONTAL/LAT / PROCEDURE REASON: Acute cough * * * * Physician Interpretation * * * * EXAMINATION: CHEST RADIOGRAPH (2 VIEW FRONTAL and LATERAL) CLINICAL HISTORY: Acute cough MQ: XC2_6 EXAM DATE/TIME: 02/25/2024 12:01 PM COMPARISON: No relevant prior studies available. RESULT: Lines, tubes, and devices: None. Lungs and pleura: No consolidation. No lung mass. No pleural effusion. No pneumothorax. Cardiomediastinal silhouette: Normal cardiomediastinal silhouette. Bones and soft tissues: Mild degenerative changes. IMPRESSION: No acute radiographic abnormality. Machinist Supervisor Outside: [facility] Transcribe Date/Time: Feb 25 2024 12:03P Dictated by : JENNYFER REYES MD This examination was interpreted and the report reviewed and electronically signed by: JENNYFER REYES MD on Feb 25 2024 12:03PM EST [id number] Normal [facility] XR Chest PA and Lateralon IMPRESSION: No acute radiographic abnormality. Machinist Supervisor Outside: [facility] Transcribe Date/Time: Feb 25 2024 12:03P Dictated by : JENNYFER REYES MD This examination was interpreted and the report reviewed and electronically signed by: JENNYFER REYES MD on Feb 25 2024 12:03PM EST DIVISION OF RADIOLOGY * * *Final Report* * * DATE OF EXAM: Feb 25 2024 12:01PM WOX [id number] - XR CHEST 2V FRONTAL/LAT / PROCEDURE REASON: Acute cough * * * * Physician Interpretation * * * * EXAMINATION: CHEST RADIOGRAPH (2 VIEW FRONTAL & LATERAL) CLINICAL HISTORY: Acute cough MQ: XC2_6 EXAM DATE/TIME: 02/25/2024 12:01 PM COMPARISON: No relevant prior studies available. RESULT: Lines, tubes, and devices: None. Lungs and pleura: No consolidation. No lung mass. No pleural effusion. No pneumothorax. Cardiomediastinal silhouette: Normal cardiomediastinal silhouette. Bones and soft tissues: Mild degenerative changes. DIVISION OF RADIOLOGY Provider, Johana hurtado [place] - 02/25/2024 * * *Final Report* * * DATE OF EXAM: Feb 25 2024 12:01PM WOX [id number] - XR CHEST 2V FRONTAL/LAT / PROCEDURE REASON: Acute cough * * * * Physician Interpretation * * * * EXAMINATION: CHEST RADIOGRAPH (2 VIEW FRONTAL & LATERAL) CLINICAL HISTORY: Acute cough MQ: XC2_6 EXAM DATE/TIME: 02/25/2024 12:01 PM COMPARISON: No relevant prior studies available. RESULT: Lines, tubes, and devices: None. Lungs and pleura: No consolidation. No lung mass. No pleural effusion. No pneumothorax. Cardiomediastinal silhouette: Normal cardiomediastinal silhouette. Bones and soft tissues: Mild degenerative changes. IMPRESSION IMPRESSION: No acute radiographic abnormality. Machinist Supervisor Outside: [facility] Transcribe Date/Time: Feb 25 2024 12:03P Dictated by : JENNYFER REYES MD This examination was interpreted and the report reviewed and electronically signed by: JENNYFER REYES MD on Feb 25 2024 12:03PM EST [facility] Radiology Study observation (narrative) [facility] XR Chest PA and LateralOrder ed By: Ccf Provider on 02-25-2024 [facility] CNOVon 01-17-2024 CNOV Office Visit (PEDSWS ) BHAVIN SANTORO ([id number]) 1985 F Date Time Provider Department 01/17/24 2:00 PM NURSE HERMINIO LAW PEDSWS During your visit today, we recorded the following information about you: Allergies As of Date: 01/17/2024 Noted Allergy Reaction CODEINE 06/24/2013 2 - Rash NORTRIPTYLINE 07/03/2013 16 - Unknown TOPAMAX (TOPIRAMATE) 06/24/2013 2 - Rash Date Reviewed: 12/06/2016 Reviewed by: Kristy Bowens (Zina) - Fully Assessed Primary Visit Diagnosis:Encounter for immunization [Z23] Order(s):INFLUENZA VACCINE, AGE 6MO-64YR, TRIVALENT (AFLURIA, FLULAVAL, FLUVIRIN, FLUZONE) [[id number]] Order #: [id number] Prescriptions as of 01/17/2024 - venlafaxine HCl (EFFEXOR ORAL) Take by mouth. - spironolact/hydrochlorothia zid (SPIRONOLACTON-HYDROCHLOROT HIAZ ORAL) Take by mouth. - FLUoxetine HCl (PROZAC) 40 mg capsule TAKE 1 CAPSULE BY MOUTH EVERY DAY - lamoTRIgine (LAMICTAL) 200 mg tablet Take 1.5 tabs AM and 2 tabs PM - folic acid 1 mg tablet Take 4 tablets by mouth once daily. - acetaminophen 325 mg-caffeine 40 mg-butalbital 50 mg (FIORICET) per tablet Take 1 tablet by mouth every 8 hours as needed for Headache. - clonazePAM (KLONOPIN) 1 mg tablet take 1 tablet by mouth four times a day - traZODone (DESYREL) 50 mg tablet Take 1 tablet by mouth daily at bedtime. - lisdexamfetamine (VYVANSE) 70 mg capsule Take 1 capsule by mouth once daily for 30 days. Earliest Fill Date: 05/27/17 - FLUoxetine (PROZAC) 20 mg capsule Take 1 capsule by mouth once daily. for two weeks and then increase to two (2) daily (=40 mg ) - Drospirenone-Ethinyl Estradiol 3-0.03 mg per tablet - acetaminophen 325 mg-caffeine 40 mg-butalbital 50 mg (FIORICET) per tablet Take 1 tablet by mouth every 8 hours as needed for Headache. - Norethindrone, Contraceptive, (DEBLITANE) 0.35 mg tablet Take 1 tablet by mouth once daily. Problem List As Of Date 01/17/2024 Noted Resolved Epilepsy (HCC) [G40.909] 01/06/2014 Adult ADHD [F90.9] 01/06/2014 Migraine without aura [G43.009] 01/06/2014 Anxiety [F41.9] 01/06/2014 01/06/2014 Anxiety [F41.9] 11/14/2014 Social anxiety disorder [F40.10] 05/10/2015 Major depressive disorder, recurrent episode, i*05/10/2015 Encounter Status:Closed by HANS ALBERTO on 01/17/24 [facility] CNOVon 08-10-2023 CNOV Office Visit (UCWSTR ) BHAVIN SANTORO ([id number]) 1985 F Date Time Provider Department 08/10/23 1:15 PM CONRAD GARCIA [facility] During your visit today, we recorded the following information about you: Temperature Pulse Respiration Blood pressure 97.2 degrees 112/minute 18/minute 122/72 Weight Last Period 84.3 kg 07/20/23 Conrad Garcia PA-C 08/10/2023 2:03 PM Signed This note was created using [employer]. Subjective Bhavin Santoro is a 38 year old female. HPI Patient presents with chief complaint of sore throat, headache, body aches over the past 2 days. No fever. Denies significant cough or congestion. Ears are hurting as well. She states some people have been sick at work. Review of Systems Constitutional: Positive for fatigue. Negative for fever. HENT: Positive for ear pain and sore throat. Negative for congestion, rhinorrhea, sinus pressure and sinus pain. Respiratory: Negative for cough and shortness of breath. Cardiovascular: Negative. Gastrointestinal: Negative. Genitourinary: Negative. Musculoskeletal: Positive for myalgias. Neurological: Positive for headaches. All other systems reviewed and are negative. PAST MEDICAL HISTORY Diagnosis Date Epilepsy (HCC) Major depressive disorder, recurrent episode, in full remission (HCC) 05/10/2015 Current Outpatient Medications Medication Sig Dispense Refill venlafaxine HCl (EFFEXOR ORAL) Take by mouth. traZODone (DESYREL) 50 mg tablet Take 1 tablet by mouth daily at bedtime. 30 tablet 5 spironolact/hydrochlorothia zid (SPIRONOLACTON-HYDROCHLOROT HIAZ ORAL) Take by mouth. amoxicillin (AMOXIL) 500 mg capsule Take 1 capsule by mouth two times a day for 10 days. 20 capsule 0 FLUoxetine HCl (PROZAC) 40 mg capsule TAKE 1 CAPSULE BY MOUTH EVERY DAY (Patient not taking: Reported on 08/10/2023) 30 capsule 1 lamoTRIgine (LAMICTAL) 200 mg tablet Take 1.5 tabs AM and 2 tabs PM (Patient not taking: Reported on 08/10/2023) 315 tablet 0 folic acid 1 mg tablet Take 4 tablets by mouth once daily. (Patient not taking: Reported on 08/10/2023) 360 tablet 1 acetaminophen 325 mg-caffeine 40 mg-butalbital 50 mg (FIORICET) per tablet Take 1 tablet by mouth every 8 hours as needed for Headache. (Patient not taking: Reported on 08/10/2023) 30 tablet 1 clonazePAM (KLONOPIN) 1 mg tablet take 1 tablet by mouth four times a day 120 tablet 2 lisdexamfetamine (VYVANSE) 70 mg capsule Take 1 capsule by mouth once daily for 30 days. Earliest Fill Date: 05/27/17 30 capsule 0 FLUoxetine (PROZAC) 20 mg capsule Take 1 capsule by mouth once daily. for two weeks and then increase to two (2) daily (=40 mg ) (Patient not taking: Reported on 08/10/2023) 60 capsule 1 Drospirenone-Ethinyl Estradiol 3-0.03 mg per tablet 1 acetaminophen 325 mg-caffeine 40 mg-butalbital 50 mg (FIORICET) per tablet Take 1 tablet by mouth every 8 hours as needed for Headache. 30 tablet 3 Norethindrone, Contraceptive, (DEBLITANE) 0.35 mg tablet Take 1 tablet by mouth once daily. 0 No current facility-administered medications for this visit. PAST SURGICAL HISTORY Procedure Laterality Date APPENDECTOMY DELIVERY ONLY No family history on file. Social History Tobacco Use Smoking status: Every Day Packs/day: 0.50 Years: 5.00 Additional pack years: 0.00 Total pack years: 2.50 Types: Cigarettes Smokeless tobacco: Never Substance Use Topics Alcohol use: Yes Alcohol/week: 1.0 - 2.0 standard drink of alcohol Types: 1 - 2 Glasses of Wine (5oz) per week Drug use: No Objective BP 122/72 Pulse 112 Temp 36.2 ?C (97.2 ?F) Resp 18 Wt 84.3 kg (185 lb 13.6 oz) LMP 07/20/2023 (Approximate) SpO2 98% No BMI 31.90 kg/m? Physical Exam Vitals reviewed. Constitutional: Appearance: Normal appearance. HENT: Head: Normocephalic and atraumatic. Right Ear: Tympanic membrane, ear canal and external ear normal. Left Ear: Tympanic membrane, ear canal and external ear normal. Nose: Nose normal. Mouth/Throat: Mouth: Mucous membranes are moist. Pharynx: Uvula midline. Pharyngeal swelling, oropharyngeal exudate and posterior oropharyngeal erythema present. No uvula swelling. Tonsils: Tonsillar exudate present. No tonsillar abscesses. 2+ on the right. 2+ on the left. Cardiovascular: Rate and Rhythm: Normal rate and regular rhythm. Heart sounds: Normal heart sounds. Pulmonary: Effort: Pulmonary effort is normal. Breath sounds: Normal breath sounds. Musculoskeletal: Cervical back: Neck supple. Lymphadenopathy: Cervical: Cervical adenopathy present. Skin: General: Skin is warm and dry. Findings: No rash. Neurological: Mental Status: She is alert. Assessment and Plan ASSESSMENT/PLAN: 1. Strep throat - ICD9: 034.0, ICD10: J02.0 - Group A strep molecular testing positive - Amoxicillin for 10 days. - Discussed supportive care treatment (more content not included)... Normal [facility] STREP A MOLECULAR (POC)on Procedural Control Valid [facility] Strep A (POCT) Positive Abnormal Negative [facility] Phenobarbitalon 06-25-2017 Phenobarbital 25.2 ug/mL Normal 15.0-40.0 [facility] Comment on above: Performed By: #### C BCDIF, UA, GBCHEM, GBTSH, HCGQT, MG, PHEN, RPR ####[facility] [id number] [address] [place], [place] [phone] Phenobarbitalon 06-24-2017 Phenobarbital 21.4 ug/mL Normal 15.0-40.0 [facility] Comment on above: Performed By: #### C BCDIF, UA, GBCHEM, GBTSH, HCGQT, MG, PHEN, RPR ####[facility] [id number] [facility] [place], [place] [phone] Phenobarbitalon 06-23-2017 Phenobarbital 21.0 ug/mL Normal 15.0-40.0 [facility] Comment on above: Performed By: #### P HEN ####[facility] Clinical [id number] [facility], [place] [phone] Phenobarbitalon 06-22-2017 Phenobarbital 14.8 ug/mL Low 15.0-40.0 [facility] Comment on above: Performed By: #### P HEN ####[facility] Clinical [id number] [facility], [place] [phone] CBCDIFon 06-21-2017 Abs Baso 0.05 k/uL Normal 0-0.2 [facility] Comment on above: Performed By: #### C BCDIF, UA, GBCHEM, GBTSH, HCGQT, MG, PHEN, RPR ####[facility] [id number] [facility], [place] [phone] Abs [place] 0.70 k/uL Normal 0-0.8 [facility] Comment on above: Performed By: #### C BCDIF, UA, GBCHEM, GBTSH, HCGQT, MG, PHEN, RPR ####[facility] Ast19143 [facility], [place] [phone] Abs Neut 4.19 k/uL Normal 1.8-7.7 [facility] Comment on above: Performed By: #### C BCDIF, UA, GBCHEM, GBTSH, HCGQT, MG, PHEN, RPR ####[facility] Clinical Ypa59558 [place], [place] [phone] Basophils/100 WBC Auto (Bld) 0.6 % Normal 0-1 [facility] Comment on above: Performed By: #### C BCDIF, UA, GBCHEM, GBTSH, HCGQT, MG, PHEN, RPR ####[facility] Clinical Wla27523 [address], [place] [phone] Eosinophils 0.11 10*3/uL Normal 0-0.4 [facility] Comment on above: Performed By: #### C BCDIF, UA, GBCHEM, GBTSH, HCGQT, MG, PHEN, RPR ####[facility] Clinical Rnk63268 [address], [place] [phone] Eosinophils/100 leukocytes 1.2 % Normal 0-4 [facility] Comment on above: Performed By: #### C BCDIF, UA, GBCHEM, GBTSH, HCGQT, MG, PHEN, RPR ####[facility] Vyw51692 [address]Ch[place], [place] [phone] Erythrocyte distribution width Auto Ratio (RBC) 12.4 % Normal 11.5-14.5 [facility] Comment on above: Performed By: #### C BCDIF, UA, GBCHEM, GBTSH, HCGQT, MG, PHEN, RPR ####[facility] Clinical Jns58204 [address]Ch[place], [place] [phone] Erythrocytes (RBC) 4.29 10*6/uL Normal 4.00-5.20 [facility] Comment on above: Performed By: #### C BCDIF, UA, GBCHEM, GBTSH, HCGQT, MG, PHEN, RPR ####[facility] Wuh59231 [address], [place] [phone] Erythrocytes (RBC) 0 /100 WBC Normal 0-0.9 [facility] Comment on above: Performed By: #### C BCDIF, UA, GBCHEM, GBTSH, HCGQT, MG, PHEN, RPR ####[facility] Zyi93577 [address], [place] [phone] Hematocrit (HCT) 40.9 % Normal 36.0-46.0 [facility] Comment on above: Performed By: #### C BCDIF, UA, GBCHEM, GBTSH, HCGQT, MG, PHEN, RPR ####[facility] Clinical Tqu14941 [place], [place] [phone] Hemoglobin mass conc (Bld) 13.6 g/dL Normal 12.0-16.0 [facility] Comment on above: Performed By: #### C BCDIF, UA, GBCHEM, GBTSH, HCGQT, MG, PHEN, RPR ####[facility] Clinical Jws86656 [facility], [place] [phone] Immature Gran 0.10 % Normal 0-1.9 [facility] Comment on above: Performed By: #### C BCDIF, UA, GBCHEM, GBTSH, HCGQT, MG, PHEN, RPR ####[facility] Clinical Fph11969 [place] [phone] Lymphocytes 3.90 10*3/uL Normal 1.0-4.0 [facility] Comment on above: Performed By: #### C BCDIF, UA, GBCHEM, GBTSH, HCGQT, MG, PHEN, RPR ####[facility] Clinical Bpm58265 [place], [place] [phone] Lymphocytes/100 leukocytes 43.5 % Normal 22-44 [facility] Comment on above: Performed By: #### C BCDIF, UA, GBCHEM, GBTSH, HCGQT, MG, PHEN, RPR ####[facility] Clinical Tvz54972 [facility], [place] [phone] MCH 31.7 pG Normal 26-34 [facility] Comment on above: Performed By: #### C BCDIF, UA, GBCHEM, GBTSH, HCGQT, MG, PHEN, RPR ####[facility] Dba66811 [place], [place] [phone] MCHC mass conc (RBC) 33.3 g/dL Normal 31-37 [facility] Comment on above: Performed By: #### C BCDIF, UA, GBCHEM, GBTSH, HCGQT, MG, PHEN, RPR ####[facility] Clinical Bwt32485 [address] RdDestinirdon, [place] [phone] MCV 95.3 fL Normal 80-100 [facility] Comment on above: Performed By: #### C BCDIF, UA, GBCHEM, GBTSH, HCGQT, MG, PHEN, RPR ####[facility] Clinical Oit63955 [address]Destinirdon, [place] [phone] Monocytes/100 leukocytes 7.8 % Normal 4-12 [facility] Comment on above: Performed By: #### C BCDIF, UA, GBCHEM, GBTSH, HCGQT, MG, PHEN, RPR ####[facility] Clinical Uyf47502 [address] RdDestinirdon, [place] [phone] Neutrophils/100 WBC Auto (Bld) 46.8 % Normal 40-70 [facility] Comment on above: Performed By: #### C BCDIF, UA, GBCHEM, GBTSH, HCGQT, MG, PHEN, RPR ####[facility] Clinical Yke65010 [address] RdDestinirdon, [place] [phone] Platelets 297 10*3/uL Normal 150-450 [facility] Comment on above: Performed By: #### C BCDIF, UA, GBCHEM, GBTSH, HCGQT, MG, PHEN, RPR ####[facility] Cvn97146 [address]Destinirdon, [place] [phone] WBC (Leukocytes) 8.96 10*3/uL Normal 4.5-11.0 [facility] Comment on above: Performed By: #### C BCDIF, UA, GBCHEM, GBTSH, HCGQT, MG, PHEN, RPR ####[facility] Wax59071 [address]Dest[place]irdon, [place] [phone] [facility] Profon 2017 Alanine aminotransferase (ALT) 16 U/L Normal 9-52 [facility] Comment on above: Performed By: #### C BCDIF, UA, GBCHEM, GBTSH, HCGQT, MG, PHEN, RPR ####[facility] Clinical Axw03866 Emerson RdDale General Hospitalrdon, [place] [phone] Albumin 4.2 g/dL Normal 3.5-5.0 [facility] Comment on above: Performed By: #### C BCDIF, UA, GBCHEM, GBTSH, HCGQT, MG, PHEN, RPR ####[facility] Clinical Qcy43957 [facility] [place], [place] [phone] Alkaline Phos 61 U/L Normal 38-125 [facility] Comment on above: Performed By: #### C BCDIF, UA, GBCHEM, GBTSH, HCGQT, MG, PHEN, RPR ####[facility] Iky71786 [facility] [place], [place] [phone] Amylase 62 U/L Normal 30-110 [facility] Comment on above: Performed By: #### C BCDIF, UA, GBCHEM, GBTSH, HCGQT, MG, PHEN, RPR ####[facility] Mli20181 Emerson RdDale General Hospitalrdon, [place] [phone] Anion gap 16 mmol/L High 0-15 [facility] Comment on above: Performed By: #### C BCDIF, UA, GBCHEM, GBTSH, HCGQT, MG, PHEN, RPR ####[facility] Cfm90451 [address] RdDale General Hospitalrdon, [place] [phone] Aspartate aminotransferase (AST) 20 U/L Normal 17-59 [facility] Comment on above: Performed By: #### C BCDIF, UA, GBCHEM, GBTSH, HCGQT, MG, PHEN, RPR ####[facility] Wuv65237 [address] RdDale General Hospitalrdon, [place] [phone] Bilirubin Ql (U) 0.2 mg/dL Normal 0.2-1.3 [facility] Comment on above: Performed By: #### C BCDIF, UA, GBCHEM, GBTSH, HCGQT, MG, PHEN, RPR ####[facility] Clinical Aoq34664 [place], [place] [phone] Calcium 9.4 mg/dL Normal 8.4-10.2 [facility] Comment on above: Performed By: #### C BCDIF, UA, GBCHEM, GBTSH, HCGQT, MG, PHEN, RPR ####[facility] Clinical Zuz23243 [place], [place] [phone] Chloride 104 mmol/L Normal 98-107 [facility] Comment on above: Performed By: #### C BCDIF, UA, GBCHEM, GBTSH, HCGQT, MG, PHEN, RPR ####[facility] Lsp18259 [place], [place] [phone] Cholesterol 203 mg/dL High 100-199 [facility] Comment on above: Performed By: #### C BCDIF, UA, GBCHEM, GBTSH, HCGQT, MG, PHEN, RPR ####[facility] Whq01403 [place], [place] [phone] CO2 26 mmol/L Normal 22-30 [facility] Comment on above: Performed By: #### C BCDIF, UA, GBCHEM, GBTSH, HCGQT, MG, PHEN, RPR ####[facility] Jxc93802 [place], [place] [phone] Creatinine 0.78 mg/dL Normal 0.52-1.04 [facility] Comment on above: Performed By: #### C BCDIF, UA, GBCHEM, GBTSH, HCGQT, MG, PHEN, RPR ####[facility] Bzw40902 [place], [place] [phone] eGFR (non-black) mL/min/{1.73_m2} Normal >60 [facility] Comment on above: Result Comment: MDRD calculation used for eGFR results. Performed By: #### C BCDIF, UA, GBCHEM, GBTSH, HCGQT, MG, PHEN, RPR ####[facility] Clinical Rhn24663 [facility] [place], [place] [phone] GGT 46 U/L High 12-43 [facility] Comment on above: Performed By: #### C BCDIF, UA, GBCHEM, GBTSH, HCGQT, MG, PHEN, RPR ####[facility] Clinical Mau76623 [facility], [place] [phone] Glucose mass conc 120 mg/dL High 74-106 [facility] Comment on above: Performed By: #### C BCDIF, UA, GBCHEM, GBTSH, HCGQT, MG, PHEN, RPR ####[facility] Clinical Yve20657 [facility], [place] [phone] LDH 325 U/L Normal 318-618 [facility] Comment on above: Performed By: #### C BCDIF, UA, GBCHEM, GBTSH, HCGQT, MG, PHEN, RPR ####[facility] Ngs49921 [facility], [place] [phone] Phosphate 3.8 mg/dL Normal 2.5-4.5 [facility] Comment on above: Performed By: #### C BCDIF, UA, GBCHEM, GBTSH, HCGQT, MG, PHEN, RPR ####[facility] Clinical Zyg19340 [facility], [place] [phone] Potassium molar conc 3.8 mmol/L Normal 3.5-5.1 [facility] Comment on above: Performed By: #### C BCDIF, UA, GBCHEM, GBTSH, HCGQT, MG, PHEN, RPR ####[facility] Jlp77000 [facility] [place], [place] [phone] Protein 7.2 g/dL Normal 6.2-8.2 [facility] Comment on above: Performed By: #### C BCDIF, UA, GBCHEM, GBTSH, HCGQT, MG, PHEN, RPR ####[facility] Vtb37384 [facility] [place], [place] [phone] Sodium 142 mmol/L Normal 137-145 [facility] Comment on above: Performed By: #### C BCDIF, UA, GBCHEM, GBTSH, HCGQT, MG, PHEN, RPR ####[facility] Cdp48716 [facility] [place], [place] [phone] Triglyceride 141 mg/dL Normal 35-150 [facility] Comment on above: Performed By: #### C BCDIF, UA, GBCHEM, GBTSH, HCGQT, MG, PHEN, RPR ####[facility] Ubj67226 [facility], [place] [phone] Urate 4.3 mg/dL Normal 2.5-6.2 [facility] Comment on above: Performed By: #### C BCDIF, UA, GBCHEM, GBTSH, HCGQT, MG, PHEN, RPR ####[facility] Wra82360 [facility], [phone] Urea nitrogen 13 mg/dL Normal 7-17 [facility] Comment on above: Performed By: #### C BCDIF, UA, GBCHEM, GBTSH, HCGQT, MG, PHEN, RPR ####[facility] Wqs84828 [facility], [place] [phone] [facility] TSHon 06-21-2017 Thyroid stimulating hormone (TSH) 1.900 uU/mL Normal 0.465-4.680 [facility] Comment on above: Performed By: #### C BCDIF, UA, GBCHEM, GBTSH, HCGQT, MG, PHEN, RPR ####[facility] Uci88322 [facility] [place], [place] [phone] HCG, Serum Quanton 8 HCG, Serum Quant <2.39 Normal [facility] Comment on above: Result Comment: Jayesh titative HCG InterpretationGestational Age HCG Range4 Weeks [phone] Weeks [phone] Weeks [phone] Weeks [phone] Weeks 69304-8574625 Weeks [phone] Weeks [phone] Weeks [phone] Weeks [phone] Trimester [id number] Trimester 2320-94964Ljm females or males: <6.0 Performed By: #### C BCDIF, UA, GBCHEM, GBTSH, HCGQT, MG, PHEN, RPR ####[facility] Hlm23816 [place], [place] [phone] Magnesiumon 06-21-2017 Magnesium 2.0 mg/dL Normal 1.3-2.3 [facility] Comment on above: Performed By: #### C BCDIF, UA, GBCHEM, GBTSH, HCGQT, MG, PHEN, RPR ####[facility] Mmh59936 [place], [place] [phone] Phenobarbitalon 06-21-2017 Phenobarbital 8.9 ug/mL Low 15.0-40.0 [facility] Comment on above: Performed By: #### C BCDIF, UA, GBCHEM, GBTSH, HCGQT, MG, PHEN, RPR ####[facility] Dvp94853 [place], [place] [phone] RPRon 06-21-2017 Reagin antibody presence Nonreactive Normal Nonreactive [facility] Comment on above: Performed By: #### C BCDIF, UA, GBCHEM, GBTSH, HCGQT, MG, PHEN, RPR ####[facility] Ddp67270 [place], [place] [phone] Urinalysison 06-21-2017 Bilirubin (total) Negative Normal Negative [facility] Comment on above: Performed By: #### C BCDIF, UA, GBCHEM, GBTSH, HCGQT, MG, PHEN, RPR ####[facility] Gzw66533 [place] [phone] Comments MICROSCOPIC ANALYSIS NOT DONE ON URINES WITH NEGATIVE BIOCHEMICAL TESTS Normal [facility] Comment on above: Performed By: #### C BCDIF, UA, GBCHEM, GBTSH, HCGQT, MG, PHEN, RPR ####[facility] Pvr78082 [place], [place] [phone] Glucose mass conc Negative Normal Negative [facility] Comment on above: Performed By: #### C BCDIF, UA, GBCHEM, GBTSH, HCGQT, MG, PHEN, RPR ####[facility] Clinical Qhd94989 [place] [phone] Hemoglobin mass conc (Bld) Negative Normal Negative [facility] Comment on above: Performed By: #### C BCDIF, UA, GBCHEM, GBTSH, HCGQT, MG, PHEN, RPR ####[facility] Clinical Bjz82322 [place] [phone] Ketone Negative Normal Negative [facility] Comment on above: Performed By: #### C BCDIF, UA, GBCHEM, GBTSH, HCGQT, MG, PHEN, RPR ####[facility] Clinical Kdi97684 [place], [place] [phone] Leukest Negative Normal Negative [facility] Comment on above: Performed By: #### C BCDIF, UA, GBCHEM, GBTSH, HCGQT, MG, PHEN, RPR ####[facility] Clinical Kfv26117 [place], [place] [phone] Protein Negative Normal Negative [facility] Comment on above: Performed By: #### C BCDIF, UA, GBCHEM, GBTSH, HCGQT, MG, PHEN, RPR ####[facility] Clinical Tpy35275 [place], [place] [phone] Urine Spec [place] 1.017 Normal 1.005-1.030 [facility] Comment on above: Performed By: #### C BCDIF, UA, GBCHEM, GBTSH, HCGQT, MG, PHEN, RPR ####[facility] Fno98504 [facility], [phone] Urine, clarity Hazy Critically abnormal Clear [facility] Comment on above: Performed By: #### C BCDIF, UA, GBCHEM, GBTSH, HCGQT, MG, PHEN, RPR ####[facility] Kdh64439 [facility] Hospital[facility], [phone] Urine, color Yellow Normal Yellow [facility] Comment on above: Performed By: #### C BCDIF, UA, GBCHEM, GBTSH, HCGQT, MG, PHEN, RPR ####[facility] Mrc90870 [facility], [phone] Urine, nitrite presence Negative Normal Negative [facility] Comment on above: Performed By: #### C BCDIF, UA, GBCHEM, GBTSH, HCGQT, MG, PHEN, RPR ####[facility] Kui15006 [facility], [phone] Urine, pH 6.0 [pH] Normal 5-7 [facility] Comment on above: Performed By: #### C BCDIF, UA, GBCHEM, GBTSH, HCGQT, MG, PHEN, RPR ####[facility] Gpp11038 [facility], [phone] Urine, urobilinogen <2.0 Normal 0.0-1.0 [facility] Comment on above: Performed By: #### C BCDIF, UA, GBCHEM, GBTSH, HCGQT, MG, PHEN, RPR ####[facility] Cro90357 [facility], [phone] Vital Signs Date Time Vital Sign Value Performing Clinician Oliverio chen 04-08-2024 09:13-0500 Body mass index (BMI) [Ratio] 33.45 kg/m2 Gutierrez Ahumada APRN.SAILBOAT CAPTAIN Work Phone: [facility] 04-08-2024 09:13-0500 Body temperature 98.49 [degF] Gutierrez Brandyn WATER HAULER.SAILBOAT CAPTAIN Work Phone: [facility] 04-08-2024 09:13-0500 Body weight 88.4 kg Gutierrez Brandyn WATER HAULER.SAILBOAT CAPTAIN Work Phone: [facility] 04-08-2024 09:13-0500 Diastolic blood pressure 82 mm[Hg] Gutierrez Brandyn WATER HAULER.SAILBOAT CAPTAIN Work Phone: [facility] 04-08-2024 09:13-0500 Heart rate 88 /min Gutierrez Brandyn WATER HAULER.SAILBOAT CAPTAIN Work Phone: [facility] 04-08-2024 09:13-0500 Respiratory rate 18 /min Gutierrez Brandyn WATER HAULER.SAILBOAT CAPTAIN Work Phone: [facility] 04-08-2024 09:13-0500 SaO2% (BldA) [Mass fraction] 97 % Gutierrez Brandyn WATER HAULER.SAILBOAT CAPTAIN Work Phone: [facility] 04-08-2024 09:13-0500 Systolic blood pressure 128 mm[Hg] Gutierrez Rbandyn WATER HAULER.SAILBOAT CAPTAIN Work Phone: [facility] 02-25-2024 11:40-0400 Body mass index (BMI) [Ratio] 32.88 kg/m2 Gutierrez Brandyn WATER HAULER.SAILBOAT CAPTAIN Work Phone: [facility] 02-25-2024 11:40-0400 Body temperature 98.2 [degF] Gutierrez Brandyn WATER HAULER.SAILBOAT CAPTAIN Work Phone: [facility] 02-25-2024 11:40-0400 Body weight 86.9 kg Gutierrez Brandyn WATER HAULER.SAILBOAT CAPTAIN Work Phone: [facility] 02-25-2024 11:40-0400 Diastolic blood pressure 80 mm[Hg] Gutierrez Brandyn WATER HAULER.SAILBOAT CAPTAIN Work Phone: [facility] 02-25-2024 11:40-0400 Heart rate 78 /min Gutierrez Brandyn WATER HAULER.SAILBOAT CAPTAIN Work Phone: [facility] 02-25-2024 11:40-0400 Respiratory rate 18 /min Gutierrez Ahumada WATER HAULER.SAILBOAT CAPTAIN Work Phone: [facility] 02-25-2024 11:40-0400 SaO2% (BldA) [Mass fraction] 98 % Gutierrez Ahumada WATER HAULER.SAILBOAT CAPTAIN Work Phone: [facility] 02-25-2024 11:40-0400 Systolic blood pressure 118 mm[Hg] Gutierrez Brandyn WATER HAULER.SAILBOAT CAPTAIN Work Phone: [facility] 08-10-2023 13:17-0400 Body temperature 97.2 [degF] Conrad Athy PA-C Work Phone: [facility] 08-10-2023 13:17-0400 Body weight 84.3 kg Conrad Athy PA-C Work Phone: [facility] 08-10-2023 13:17-0400 Diastolic blood pressure 72 mm[Hg] Conrad Athy PA-C Work Phone: [facility] 08-10-2023 13:17-0400 Heart rate 112 /min Conrad Athy PA-C Work Phone: [facility] 08-10-2023 13:17-0400 Respiratory rate 18 /min Conrad Athy PA-C Work Phone: [facility] 08-10-2023 13:17-0400 SaO2% (BldA) [Mass fraction] 98 % Conrad Athy PA-C Work Phone: [facility] 08-10-2023 13:17-0400 Systolic blood pressure 122 mm[Hg] Conrad Athy PA-C Work Phone: [facility] Encounters Encounter Date Encounter Type Care Provider Facility Start: 03-13-2025 ambulatory [facility] Facility: [facility] Start: 02-13-2025 End: 02-13-2025 ambulatory [facility] Facility:[facility] Start: 09-16-2024 ambulatory Judy Del Castillo Facility: [facility] Start: 07-15-2024 End: 07-15-2024 ambulatory [facility] Facility:[facility] Start: 07-15-2024 End: 07-15-2024 ambulatory [facility] Facility:[facility] Start: 06-24-2024 Encounter for genera l adult medical examination without abnormal findings Duc [facility] Start: 06-06-2024 End: 06-06-2024 ambulatory [facility] Facility:[facility] Start: 05-29-2024 End: 05-29-2024 ambulatory [facility] Facility:[facility] Start: 04-08-2024 End: 04-08-2024 Subsequent hospital visit by physician Bry [facility] Thanh Work Phone: Radiology Comment on above: Injury of left lower leg, initial encounter [S89.92XA] Start: 04-08-2024 End: 04-08-2024 ambulatory [facility] Facility:[facility] Start: 04-08-2024 End: 04-08-2024 Patient encounter procedure Gutierrez Ahumada APRN.CNP Work Phone: [facility] Comment on above: Injury of left lower leg, initial encounter (Primary Dx) Start: 02-25-2024 End: 02-25-2024 Subsequent hospital visit by physician Bry [facility] Thanh Work Phone: Radiology Comment on above: Acute cough [R05.1] Start: 02-25-2024 End: 02-25-2024 [facility] Facility:[facility] Start: 02-25-2024 End: 02-25-2024 Patient encounter procedure Gutierrez Ahumada APRN.CNP Work Phone: [facility] Comment on above: Lower resp. tract in fection (Primary Dx); Sore throat; Acute cough; Pneumonia exposure Start: 01-17-2024 End: 01-17-2024 ambulatory [facility] Facility:[facility] Start: 01-17-2024 End: 01-17-2024 Patient encounter procedure Nurse Herminio Law Comment on above: Encounter for immuni zation (Primary Dx) Start: 08-10-2023 End: 08-10-2023 [facility] Facility:[facility] Start: 08-10-2023 End: 08-10-2023 Patient encounter procedure Conrad Garcia PA-C Work Phone: Thanh [facility] Comment on above: Strep throat (Primar y Dx) Start: 03-02-2023 End: 03-02-2023 ambulatory Immunization Clinic Nurse Thanh Work Phone: Family Medicine [place] Start: 06-25-2017 Ambulatory [facility] Start: 06-24-2017 Ambulatory [facility] Start: 06-22-2017 Ambulatory [facility] Start: 06-21-[address] [facility] Procedures Date Procedure Procedure Detail Performing Clinician Start: 04-08-2024 Radiologic examinati on tibia & fibula 2 views Gutierrez Ahumada APRN.SAILBOAT CAPTAIN Work Phone: Start: 02-25-2024 Radiologic exam ches t 2 views Gutierrez Ahumada WATER HAULER.SAILBOAT CAPTAIN Work Phone: Start: 02-25-2024 STREP A MOLECULAR (POC) Conrad Garcia PA-C Work Phone: Start: 08-10-2023 STREP A MOLECULAR (POC) [facility] Provider Start: 03-02-2023 INFLUENZA VACCINE, A GE 6 MO - 64 YR, QUADRIVALENT (AFLURIA, FLULAVAL, FLUZONE) Perry Munoz MD Work Phone: Plan of Treatment Date Care Activity Detail Author Start: 06-30-2032 Urine microalbumin profile DTa P,Tdap,Td Vaccine (3 - Td or Tdap) [facility] Start: 01-06-2024 Covid-19 Vaccine ( season) Covid-19 Vaccine ( season) [facility] Start: 01-06-2024 Covid-19 Vaccine () Covid-19 Vaccine ( season) [facility] Start: 01-05-2023 Covid-19 Vaccine () Covid-19 Vaccine () [facility] Start: 2014 HPV Testing HPV Testing [facility] Start: 2014 Screening for malign ant neoplasm of cervix HPV Testing [facility] Start: 2005 Pap Testing Pap Testing [facility] Start: 2005 Screening for malign ant neoplasm of cervix [facility] Start: 2003 Hepatitis B Vaccine (1 of 3 - 19+ 3-dose series) Hepatitis B Vaccine (1 of 3 - 19+ 3-dose series) [facility] Start: 2002 Hepatitis C Screening Hepatitis C [facility] Start: 2002 Hepatitis C screening Hepatitis C [facility] Start: 2002 HIV Screening HIV Screening [facility] Start: 2002 HIV screening HIV Screening [facility] Start: 1990 Pneumococcal vaccination [facility] Start: 1984 Hepatitis B Vaccine (1 of 3 - 3-dose series) Hepatitis B Vaccine (1 of 3 - 3-dose series) [facility] Immunizations Immunization Date Immunization Notes Care Provider Nate torres 01-17-2024 influenza, seasonal[facility] 03-[facility] influenza, injectabl e, quadrivalent, contains preservative Immunization [place] Work Phone: [facility] Work Phone: Payers Date Payer Category Payer Self-pay 2024 Unknown [id number] 2013 Unknown [employer] [facility] PPO [id number] 2013-Present [phone] [address] [place] [address] PPO [id number] 2013 Unknown [id number] Unknown [id number] Unknown [id number] Unknown [id number] Unknown [id number] Unknown [id number] Unknown [id number] Unknown [id number] Social History Date Type Detail Facility Start: 06-16-2016 End: 02-25-2024 Tobacco smoking status NHIS Smokes tobacco daily [facility] History of tobacco use Cigarette Smoker [facility] Start: 06-16-2016 End: 04-13-2020 Cigarettes smoked current (pack per day) - Reported 0.5 [facility] Start: 06-16-2016 End: 02-25-2024 Tobacco use and exposure Smokeless tobacco non-user [facility] Start: 12-06-2016 End: 04-08-2024 Alcohol intake Current drinker of alcohol (finding) [facility] Start: 11-04-2017 End: 04-13-2020 Tobacco use panel [facility] National Score (1-10 0), lower number is lower risk Not on file [facility] Start: 1984 Sex Assigned At Not on file C [facility] Clinical Notes 01-06-2014 to 04-08-2024 Gutierrez Ahumada APRN.GERALDINE - 04/08/2024 10:01 AM Ananda Domingo RT(R) - 04/08/2024 9:40 AM Gutierrez Kaur APRN.SAILBOAT CAPTAIN - 02/25/2024 1:13 PM Miriam Cross RT(R) - 02/25/2024 12:00 PM EDT Note Date & Type Note Facility 04-08-2024 Note HNO ID: [id number] Author: GUTIERREZ AHUMADA APRN.SAILBOAT CAPTAIN Service: ? Author Type: Nurse Practitioner Type: Progress Notes Filed: 04/08/2024 10:59 Note Text: Subjective HPI HPI Bhavin Wiggins is a 38 year old female who presents today for CC of jumped yesterday, heard pop in calf, pain/now. Has tried nothing for relief. Symptoms are worsened by rom/walking. Denies prior injury to calf/left leg. Denies possibility of being . .Patient presents with: left calf pain: [place] a pop last night playing basket-ball PAST MEDICAL HISTORY Diagnosis Date Epilepsy (HCC) Major depressive disorder, recurrent episode, in full remission (HCC) 05/10/2015 PAST SURGICAL HISTORY Procedure Laterality Date APPENDECTOMY DELIVERY ONLY ALLERGIES Codeine, Nortriptyline, and Topamax [Topiramate] MEDICATIONS spironolactone (ALDACTONE) 100 mg tablet Take 1 tablet by mouth every afternoon. INTRAUTERINE DEVICE, IUD, INTRAUTERINE by INTRAUTERINE route. venlafaxine HCl (EFFEXOR ORAL) Take by mouth. spironolact/hydrochlorothiazid (SPIRONOLACTON-HYDROCHLOROTHIAZ ORAL) Take by mouth. FLUoxetine HCl (PROZAC) 40 mg capsule TAKE 1 CAPSULE BY MOUTH EVERY DAY (Patient not taking: Reported on 08/10/2023) lamoTRIgine (LAMICTAL) 200 mg tablet Take 1.5 tabs AM and 2 tabs PM (Patient not taking: Reported on 08/10/2023) folic acid 1 mg tablet Take 4 tablets by mouth once daily. (Patient not taking: Reported on 08/10/2023) acetaminophen 325 mg-caffeine 40 mg-butalbital 50 mg (FIORICET) per tablet Take 1 tablet by mouth every 8 hours as needed for Headache. (Patient not taking: Reported on 08/10/2023) clonazePAM (KLONOPIN) 1 mg tablet take 1 tablet by mouth four times a day traZODone (DESYREL) 50 mg tablet Take 1 tablet by mouth daily at bedtime. (Patient not taking: Reported on 02/25/2024) lisdexamfetamine (VYVANSE) 70 mg capsule Take 1 capsule by mouth once daily for 30 days. Earliest Fill Date: 05/27/17 FLUoxetine (PROZAC) 20 mg capsule Take 1 capsule by mouth once daily. for two weeks and then increase to two (2) daily (=40 mg ) (Patient not taking: Reported on 08/10/2023) Drospirenone-Ethinyl Estradiol 3-0.03 mg per tablet acetaminophen 325 mg-caffeine 40 mg-butalbital 50 mg (FIORICET) per tablet Take 1 tablet by mouth every 8 hours as needed for Headache. (Patient not taking: Reported on 02/25/2024) Norethindrone, Contraceptive, (DEBLITANE) 0.35 mg tablet Take 1 tablet by mouth once daily. (Patient not taking: Reported on 02/25/2024) No family history on file. Social History Tobacco Use Smoking status: Every Day Current packs/day: 0.50 Average packs/day: 0.5 packs/day for 5.0 years (2.5 ttl pk-yrs) Types: Cigarettes Smokeless tobacco: Never Substance Use Topics Alcohol use: Yes Alcohol/week: 1.0 - 2.0 standard drink of alcohol Types: 1 - 2 Glasses of Wine (5oz) per week Drug use: No ROS Objective Blood pressure 128/82, pulse 88, temperature 36.9 ?C (98.5 ?F), temperature source Tympanic, resp. rate 18, weight 88.4 kg (194 lb 14.2 oz), last menstrual period 07/20/2023, SpO2 97%. Physical Exam Constitutional: General: She is not in acute distress. Appearance: She is not toxic-appearing or diaphoretic. HENT: Head: Normocephalic and atraumatic. Pulmonary: Effort: Pulmonary effort is normal. No accessory muscle usage or respiratory distress. Musculoskeletal: Legs: Neurological: Mental Status: She is alert and oriented to person, place, and time. ASSESSMENT/PLAN: 1. Injury of left lower leg, initial encounter - ICD9: 959.7, ICD10: S89.92XA Concerns for gastroc/achilles tear Xray negative Boot/crutches provided Patient will go to [place] orth[facility] Pain relief discussed. - XR TIBIA FIBULA 2V AP/LAT LEFT IMPRESSION: No radiographic evidence of acute osseous injury Dictated by : JENNYFER REYES MD - CONSULT TO ORTHOPAEDICS Gutierrez Ahumada APRN.SAILBOAT CAPTAIN [facility] 04-08-2024 History of Present illness Narrative Images from the original note were not included. Subjective HPI HPI Bhavin Wiggins is a 38 year old female who presents today for CC of jumped yesterday, heard pop in calf, pain/now. Has tried nothing for relief. Symptoms are worsened by rom/walking. Denies prior injury to calf/left leg. Denies possibility of being . .Patient presents with: left calf pain: [place] a pop last night playing basket-ball PAST MEDICAL HISTORY Diagnosis Date Epilepsy (HCC) Major depressive disorder, recurrent episode, in full remission (HCC) 05/10/2015 PAST SURGICAL HISTORY Procedure Laterality Date APPENDECTOMY DELIVERY ONLY ALLERGIES Codeine, Nortriptyline, and Topamax [Topiramate] MEDICATIONS spironolactone (ALDACTONE) 100 mg tablet Take 1 tablet by mouth every afternoon. INTRAUTERINE DEVICE, IUD, INTRAUTERINE by INTRAUTERINE route. venlafaxine HCl (EFFEXOR ORAL) Take by mouth. spironolact/hydrochlorothiazid (SPIRONOLACTON-HYDROCHLOROTHIAZ ORAL) Take by mouth. FLUoxetine HCl (PROZAC) 40 mg capsule TAKE 1 CAPSULE BY MOUTH EVERY DAY (Patient not taking: Reported on 08/10/2023) lamoTRIgine (LAMICTAL) 200 mg tablet Take 1.5 tabs AM and 2 tabs PM (Patient not taking: Reported on 08/10/2023) folic acid 1 mg tablet Take 4 tablets by mouth once daily. (Patient not taking: Reported on 08/10/2023) acetaminophen 325 mg-caffeine 40 mg-butalbital 50 mg (FIORICET) per tablet Take 1 tablet by mouth every 8 hours as needed for Headache. (Patient not taking: Reported on 08/10/2023) clonazePAM (KLONOPIN) 1 mg tablet take 1 tablet by mouth four times a day traZODone (DESYREL) 50 mg tablet Take 1 tablet by mouth daily at bedtime. (Patient not taking: Reported on 02/25/2024) lisdexamfetamine (VYVANSE) 70 mg capsule Take 1 capsule by mouth once daily for 30 days. Earliest Fill Date: 05/27/17 FLUoxetine (PROZAC) 20 mg capsule Take 1 capsule by mouth once daily. for two weeks and then increase to two (2) daily (=40 mg ) (Patient not taking: Reported on 08/10/2023) Drospirenone-Ethinyl Estradiol 3-0.03 mg per tablet acetaminophen 325 mg-caffeine 40 mg-butalbital 50 mg (FIORICET) per tablet Take 1 tablet by mouth every 8 hours as needed for Headache. (Patient not taking: Reported on 02/25/2024) Norethindrone, Contraceptive, (DEBLITANE) 0.35 mg tablet Take 1 tablet by mouth once daily. (Patient not taking: Reported on 02/25/2024) No family history on file. Social History Tobacco Use Smoking status: Every Day Current packs/day: 0.50 Average packs/day: 0.5 packs/day for 5.0 years (2.5 ttl pk-yrs) Types: Cigarettes Smokeless tobacco: Never Substance Use Topics Alcohol use: Yes Alcohol/week: 1.0 - 2.0 standard drink of alcohol Types: 1 - 2 Glasses of Wine (5oz) per week Drug use: No ROS Objective Blood pressure 128/82, pulse 88, temperature 36.9 C (98.5 F), temperature source Tympanic, resp. rate 18, weight 88.4 kg (194 lb 14.2 oz), last menstrual period 07/20/2023, SpO2 97%. Physical Exam Constitutional: General: She is not in acute distress. Appearance: She is not toxic-appearing or diaphoretic. HENT: Head: Normocephalic and atraumatic. Pulmonary: Effort: Pulmonary effort is normal. No accessory muscle usage or respiratory distress. Musculoskeletal: Legs: Neurological: Mental Status: She is alert and oriented to person, place, and time. ASSESSMENT/PLAN: 1. Injury of left lower leg, initial encounter - ICD9: 959.7, ICD10: S89.92XA Concerns for gastroc/achilles tear Xray negative Boot/crutches provided Patient will go to [place] orth[facility] Pain relief discussed. - XR TIBIA FIBULA 2V AP/LAT LEFT IMPRESSION: No radiographic evidence of acute osseous injury Dictated by : JENNYFER REYES MD - CONSULT TO ORTHOPAEDICS Gutierrez Ahumada APRN.GERALDINE documented in this encounter [facility] 04-08-2024 History of Present illness Narrative Radiology Service Progress Note PATIENT NAME: Bhavin Wiggins DATE OF SERVICE: April 08, 2024 TIME: 9:56 AM PATIENT IDENTITY VERIFICATION COMPLETED USING TWO (2) IDENTIFIERS: Name and Date of confirmed by patient verbally. FALL SCREENING: Has the patient had 2 falls in the last year or 1 fall with injury or currently using an Ambulatory Assistive Device (Walker, Cane, Wheelchair, Crutches, etc.)? No PATIENT GENDER DATA: Female. status: : No status: NO. PATIENT RELEVANT IMPLANT DATA REVIEWED: Yes PATIENT PRESENTS WITH AN IMPLANTABLE OR ATTACHED HORTICULTURE TEACHER: No RADIOLOGY DEPARTMENT: General X-ray: Exam(s) Completed: Lower Extremity X-Ray(s): Tibia Fibula, Left PERIPHERAL IV DATA: Not applicable SIGNED BY: RT Kenna(R) April 08, 2024 9:56 AM documented in this encounter [facility] 04-08-2024 Note HNO ID: [id number] Author: ANANDA LEIGH RT(R) Service: ? Author Type: Telecasting Technician Type: Progress Notes Filed: 04/08/2024 10:04 Note Text: Radiology Service Progress Note PATIENT NAME: Bhavin Wiggins DATE OF SERVICE: April 08, 2024 TIME: 9:56 AM PATIENT IDENTITY VERIFICATION COMPLETED USING TWO (2) IDENTIFIERS: Name and Date of confirmed by patient verbally. FALL SCREENING: Has the patient had 2 falls in the last year or 1 fall with injury or currently using an Ambulatory Assistive Device (Walker, Cane, Wheelchair, Crutches, etc.)? No PATIENT GENDER DATA: Female. status: : No status: NO. PATIENT RELEVANT IMPLANT DATA REVIEWED: Yes PATIENT PRESENTS WITH AN IMPLANTABLE OR ATTACHED HORTICULTURE TEACHER: No RADIOLOGY DEPARTMENT: General X-ray: Exam(s) Completed: Lower Extremity X-Ray(s): Tibia Fibula, Left PERIPHERAL IV DATA: Not applicable SIGNED BY: RT Kenna(Saadia) April 08, 2024 9:56 AM [facility] 02-25-2024 Note HNO ID: [id number] Author: GUTIERREZ AHUMADA APRN.SAILBOAT CAPTAIN Service: ? Author Type: Nurse Practitioner Type: Progress Notes Filed: 02/25/2024 13:15 Note Text: Subjective HPI HPI Bhavin Wiggins is a 38 year old female who presents today for CC of cough, st, h/a, fever. This started 1 day ago. Has tried otc medication for relief. Symptoms are worsened by nothing. Risk factors pneumonia exposure at home. Denies possibility of being . nonsmoker. .Patient presents with: Cough: Cough, ST, GOMEZ and fever x 1 day PAST MEDICAL HISTORY Diagnosis Date Epilepsy (HCC) Major depressive disorder, recurrent episode, in full remission (HCC) 05/10/2015 PAST SURGICAL HISTORY Procedure Laterality Date APPENDECTOMY DELIVERY ONLY ALLERGIES Codeine, Nortriptyline, and Topamax [Topiramate] MEDICATIONS spironolactone (ALDACTONE) 100 mg tablet Take 1 tablet by mouth every afternoon. spironolact/hydrochlorothiazid (SPIRONOLACTON-HYDROCHLOROTHIAZ ORAL) Take by mouth. INTRAUTERINE DEVICE, IUD, INTRAUTERINE by INTRAUTERINE route. doxycycline monohydrate 100 mg tablet Take 1 tablet by mouth two times a day for 7 days. venlafaxine HCl (EFFEXOR ORAL) Take by mouth. FLUoxetine HCl (PROZAC) 40 mg capsule TAKE 1 CAPSULE BY MOUTH EVERY DAY (Patient not taking: Reported on 08/10/2023) lamoTRIgine (LAMICTAL) 200 mg tablet Take 1.5 tabs AM and 2 tabs PM (Patient not taking: Reported on 08/10/2023) folic acid 1 mg tablet Take 4 tablets by mouth once daily. (Patient not taking: Reported on 08/10/2023) acetaminophen 325 mg-caffeine 40 mg-butalbital 50 mg (FIORICET) per tablet Take 1 tablet by mouth every 8 hours as needed for Headache. (Patient not taking: Reported on 08/10/2023) clonazePAM (KLONOPIN) 1 mg tablet take 1 tablet by mouth four times a day traZODone (DESYREL) 50 mg tablet Take 1 tablet by mouth daily at bedtime. (Patient not taking: Reported on 02/25/2024) lisdexamfetamine (VYVANSE) 70 mg capsule Take 1 capsule by mouth once daily for 30 days. Earliest Fill Date: 05/27/17 FLUoxetine (PROZAC) 20 mg capsule Take 1 capsule by mouth once daily. for two weeks and then increase to two (2) daily (=40 mg ) (Patient not taking: Reported on 08/10/2023) Drospirenone-Ethinyl Estradiol 3-0.03 mg per tablet acetaminophen 325 mg-caffeine 40 mg-butalbital 50 mg (FIORICET) per tablet Take 1 tablet by mouth every 8 hours as needed for Headache. (Patient not taking: Reported on 02/25/2024) Norethindrone, Contraceptive, (DEBLITANE) 0.35 mg tablet Take 1 tablet by mouth once daily. (Patient not taking: Reported on 02/25/2024) No family history on file. Social History Tobacco Use Smoking status: Every Day Current packs/day: 0.50 Average packs/day: 0.5 packs/day for 5.0 years (2.5 ttl pk-yrs) Types: Cigarettes Smokeless tobacco: Never Substance Use Topics Alcohol use: Yes Alcohol/week: 1.0 - 2.0 standard drink of alcohol Types: 1 - 2 Glasses of Wine (5oz) per week Drug use: No Review of Systems Constitutional: Positive for fever. HENT: Positive for congestion and sore throat. Negative for ear pain and nosebleeds. Respiratory: Positive for cough. Negative for shortness of breath and wheezing. Musculoskeletal: Negative for neck pain. Skin: Negative for itching and rash. Neurological: Positive for headaches. Objective Blood pressure 118/80, pulse 78, temperature 36.8 ?C (98.2 ?F), temperature source Tympanic, resp. rate 18, weight 86.9 kg (191 lb 9.3 oz), last menstrual period 07/20/2023, SpO2 98%. Physical Exam Constitutional: General: She is not in acute distress. Appearance: She is not toxic-appearing or diaphoretic. HENT: Head: Normocephalic and atraumatic. Right Ear: Hearing, tympanic membrane, ear canal and external ear normal. Left Ear: Hearing, tympanic membrane, ear canal and external ear normal. Nose: Nose normal. Mouth/Throat: Lips: [place]. Mouth: Mucous membranes are moist. Pharynx: Uvula midline. Posterior oropharyngeal erythema present. No pharyngeal swelling, oropharyngeal exudate or uvula swelling. Eyes: General: Lids are normal. No scleral icterus. Right eye: No discharge. Left eye: No discharge. Conjunctiva/sclera: Conjunctivae normal. Pupils: Pupils are equal, round, and reactive to light. Neck: Trachea: Trachea normal. Cardiovascular: Rate and Rhythm: Normal rate and regular rhythm. Heart sounds: Normal heart sounds. Pulmonary: Effort: Pulmonary effort is normal. Breath sounds: Normal breath sounds. Musculoskeletal: Cervical back: Normal range of motion and neck supple. Lymphadenopathy: Cervical: No cervical adenopathy. Right cervical: No superficial cervical adenopathy. Left cervical: No superficial cervical adenopathy. Skin: Findings: No rash. Neurological: Mental Status: She is alert and oriented to person, place, and time. ASSESSMENT/PLAN: 1. Lower resp. tract infection - ICD9: 519.8, ICD10: J22 (primary diag (more content not included)... [facility] 02-25-2024 History of Present illness Narrative Subjective HPI HPI Bhavin Wiggins is a 38 year old female who presents today for CC of cough, st, h/a, fever. This started 1 day ago. Has tried otc medication for relief. Symptoms are worsened by nothing. Risk factors pneumonia exposure at home. Denies possibility of being . nonsmoker. .Patient presents with: Cough: Cough, ST, GOMEZ and fever x 1 day PAST MEDICAL HISTORY Diagnosis Date Epilepsy (HCC) Major depressive disorder, recurrent episode, in full remission (HCC) 05/10/2015 PAST SURGICAL HISTORY Procedure Laterality Date APPENDECTOMY DELIVERY ONLY ALLERGIES Codeine, Nortriptyline, and Topamax [Topiramate] MEDICATIONS spironolactone (ALDACTONE) 100 mg tablet Take 1 tablet by mouth every afternoon. spironolact/hydrochlorothiazid (SPIRONOLACTON-HYDROCHLOROTHIAZ ORAL) Take by mouth. INTRAUTERINE DEVICE, IUD, INTRAUTERINE by INTRAUTERINE route. doxycycline monohydrate 100 mg tablet Take 1 tablet by mouth two times a day for 7 days. venlafaxine HCl (EFFEXOR ORAL) Take by mouth. FLUoxetine HCl (PROZAC) 40 mg capsule TAKE 1 CAPSULE BY MOUTH EVERY DAY (Patient not taking: Reported on 08/10/2023) lamoTRIgine (LAMICTAL) 200 mg tablet Take 1.5 tabs AM and 2 tabs PM (Patient not taking: Reported on 08/10/2023) folic acid 1 mg tablet Take 4 tablets by mouth once daily. (Patient not taking: Reported on 08/10/2023) acetaminophen 325 mg-caffeine 40 mg-butalbital 50 mg (FIORICET) per tablet Take 1 tablet by mouth every 8 hours as needed for Headache. (Patient not taking: Reported on 08/10/2023) clonazePAM (KLONOPIN) 1 mg tablet take 1 tablet by mouth four times a day traZODone (DESYREL) 50 mg tablet Take 1 tablet by mouth daily at bedtime. (Patient not taking: Reported on 02/25/2024) lisdexamfetamine (VYVANSE) 70 mg capsule Take 1 capsule by mouth once daily for 30 days. Earliest Fill Date: 05/27/17 FLUoxetine (PROZAC) 20 mg capsule Take 1 capsule by mouth once daily. for two weeks and then increase to two (2) daily (=40 mg ) (Patient not taking: Reported on 08/10/2023) Drospirenone-Ethinyl Estradiol 3-0.03 mg per tablet acetaminophen 325 mg-caffeine 40 mg-butalbital 50 mg (FIORICET) per tablet Take 1 tablet by mouth every 8 hours as needed for Headache. (Patient not taking: Reported on 02/25/2024) Norethindrone, Contraceptive, (DEBLITANE) 0.35 mg tablet Take 1 tablet by mouth once daily. (Patient not taking: Reported on 02/25/2024) No family history on file. Social History Tobacco Use Smoking status: Every Day Current packs/day: 0.50 Average packs/day: 0.5 packs/day for 5.0 years (2.5 ttl pk-yrs) Types: Cigarettes Smokeless tobacco: Never Substance Use Topics Alcohol use: Yes Alcohol/week: 1.0 - 2.0 standard drink of alcohol Types: 1 - 2 Glasses of Wine (5oz) per week Drug use: No Review of Systems Constitutional: Positive for fever. HENT: Positive for congestion and sore throat. Negative for ear pain and nosebleeds. Respiratory: Positive for cough. Negative for shortness of breath and wheezing. Musculoskeletal: Negative for neck pain. Skin: Negative for itching and rash. Neurological: Positive for headaches. Objective Blood pressure 118/80, pulse 78, temperature 36.8 C (98.2 F), temperature source Tympanic, resp. rate 18, weight 86.9 kg (191 lb 9.3 oz), last menstrual period 07/20/2023, SpO2 98%. Physical Exam Constitutional: General: She is not in acute distress. Appearance: She is not toxic-appearing or diaphoretic. HENT: Head: Normocephalic and atraumatic. Right Ear: Hearing, tympanic membrane, ear canal and external ear normal. Left Ear: Hearing, tympanic membrane, ear canal and external ear normal. Nose: Nose normal. Mouth/Throat: Lips: [place]. Mouth: Mucous membranes are moist. Pharynx: Uvula midline. Posterior oropharyngeal erythema present. No pharyngeal swelling, oropharyngeal exudate or uvula swelling. Eyes: General: Lids are normal. No scleral icterus. Right eye: No discharge. Left eye: No discharge. Conjunctiva/sclera: Conjunctivae normal. Pupils: Pupils are equal, round, and reactive to light. Neck: Trachea: Trachea normal. Cardiovascular: Rate and Rhythm: Normal rate and regular rhythm. Heart sounds: Normal heart sounds. Pulmonary: Effort: Pulmonary effort is normal. Breath sounds: Normal breath sounds. Musculoskeletal: Cervical back: Normal range of motion and neck supple. Lymphadenopathy: Cervical: No cervical adenopathy. Right cervical: No superficial cervical adenopathy. Left cervical: No superficial cervical adenopathy. Skin: Findings: No rash. Neurological: Mental Status: She is alert and oriented to person, place, and time. ASSESSMENT/PLAN: 1. Lower resp. tract infection - ICD9: 519.8, ICD10: J22 (primary diagnosis) Hold atb, if s/s worsen after 2-3 days fill/take atb -use medication as prescribed -follow up if symptoms persist, worsen, change - DOXYCYCLINE MONOHYDRATE 100 MG TABLET 2. Sore throat - ICD9: 462, ICD10: J02.9 Negative, viral - STREP A MOLECULAR (POC) 3. Acute cough - ICD9: 786.2, ICD10: R05.1 - XR CHEST 2V FRONTAL/LAT IMPRESSION: No acute radiographic abnormality. Dictated by : JENNYFER REYES MD 4. Pneumonia exposure - ICD9: V01.89, ICD10: Z20.89 Gutierrez Ahumada APRN.SAILBOAT CAPTAIN documented in this encounter [facility] 02-25-2024 History of Present illness Narrative Radiology Service Progress Note PATIENT NAME: Bhavin Wiggins DATE OF SERVICE: February 25, 2024 TIME: 11:51 AM PATIENT IDENTITY VERIFICATION COMPLETED USING TWO (2) IDENTIFIERS: Name and Date of confirmed by patient verbally. FALL SCREENING: Has the patient had 2 falls in the last year or 1 fall with injury or currently using an Ambulatory Assistive Device (Walker, Cane, Wheelchair, Crutches, etc.)? No PATIENT GENDER DATA: Female. status: : No status: NO. PATIENT RELEVANT IMPLANT DATA REVIEWED: Yes PATIENT PRESENTS WITH AN IMPLANTABLE OR ATTACHED HORTICULTURE TEACHER: No RADIOLOGY DEPARTMENT: General X-ray: Exam(s) Completed: Chest X-Ray PERIPHERAL IV DATA: Not applicable SIGNED BY: RT Katy(R) February 25, 2024 11:51 AM documented in this encounter [facility] 02-25-2024 Note HNO ID: [id number] Author: MIRIAM GEE RT(Saadia) Service: Radiology Author Type: Technologist Type: Progress Notes Filed: 02/25/2024 12:02 Note Text: Radiology Service Progress Note PATIENT NAME: Bhavin Wiggins DATE OF SERVICE: February 25, 2024 TIME: 11:51 AM PATIENT IDENTITY VERIFICATION COMPLETED USING TWO (2) IDENTIFIERS: Name and Date of confirmed by patient verbally. FALL SCREENING: Has the patient had 2 falls in the last year or 1 fall with injury or currently using an Ambulatory Assistive Device (Walker, Cane, Wheelchair, Crutches, etc.)? No PATIENT GENDER DATA: Female. status: : No status: NO. PATIENT RELEVANT IMPLANT DATA REVIEWED: Yes PATIENT PRESENTS WITH AN IMPLANTABLE OR ATTACHED HORTICULTURE TEACHER: No RADIOLOGY DEPARTMENT: General X-ray: Exam(s) Completed: Chest X-Ray PERIPHERAL IV DATA: Not applicable SIGNED BY: RT Katy(R) February 25, 2024 11:51 AM [facility] 08-10-2023 Note HNO ID: [id number] Author: CONRAD GARCIA PA-C Service: ? Author Type: Physician Helicopter Crew Chief Type: Progress Notes Filed: 08/10/2023 14:03 Note Text: This note was created using [employer]. Subjective Bhavin Santoro is a 38 year old female. HPI Patient presents with chief complaint of sore throat, headache, body aches over the past 2 days. No fever. Denies significant cough or congestion. Ears are hurting as well. She states some people have been sick at work. Review of Systems Constitutional: Positive for fatigue. Negative for fever. HENT: Positive for ear pain and sore throat. Negative for congestion, rhinorrhea, sinus pressure and sinus pain. Respiratory: Negative for cough and shortness of breath. Cardiovascular: Negative. Gastrointestinal: Negative. Genitourinary: Negative. Musculoskeletal: Positive for myalgias. Neurological: Positive for headaches. All other systems reviewed and are negative. PAST MEDICAL HISTORY Diagnosis Date Epilepsy ([facility]) Major depressive disorder, recurrent episode, in full remission ([facility]) 05/10/2015 Current Outpatient Medications Medication Sig Dispense Refill venlafaxine HCl (EFFEXOR ORAL) Take by mouth. traZODone (DESYREL) 50 mg tablet Take 1 tablet by mouth daily at bedtime. 30 tablet 5 spironolact/hydrochlorothiazid (SPIRONOLACTON-HYDROCHLOROTHIAZ ORAL) Take by mouth. amoxicillin (AMOXIL) 500 mg capsule Take 1 capsule by mouth two times a day for 10 days. 20 capsule 0 FLUoxetine HCl (PROZAC) 40 mg capsule TAKE 1 CAPSULE BY MOUTH EVERY DAY (Patient not taking: Reported on 08/10/2023) 30 capsule 1 lamoTRIgine (LAMICTAL) 200 mg tablet Take 1.5 tabs AM and 2 tabs PM (Patient not taking: Reported on 08/10/2023) 315 tablet 0 folic acid 1 mg tablet Take 4 tablets by mouth once daily. (Patient not taking: Reported on 08/10/2023) 360 tablet 1 acetaminophen 325 mg-caffeine 40 mg-butalbital 50 mg (FIORICET) per tablet Take 1 tablet by mouth every 8 hours as needed for Headache. (Patient not taking: Reported on 08/10/2023) 30 tablet 1 clonazePAM (KLONOPIN) 1 mg tablet take 1 tablet by mouth four times a day 120 tablet 2 lisdexamfetamine (VYVANSE) 70 mg capsule Take 1 capsule by mouth once daily for 30 days. Earliest Fill Date: 05/27/17 30 capsule 0 FLUoxetine (PROZAC) 20 mg capsule Take 1 capsule by mouth once daily. for two weeks and then increase to two (2) daily (=40 mg ) (Patient not taking: Reported on 08/10/2023) 60 capsule 1 Drospirenone-Ethinyl Estradiol 3-0.03 mg per tablet 1 acetaminophen 325 mg-caffeine 40 mg-butalbital 50 mg (FIORICET) per tablet Take 1 tablet by mouth every 8 hours as needed for Headache. 30 tablet 3 Norethindrone, Contraceptive, (DEBLITANE) 0.35 mg tablet Take 1 tablet by mouth once daily. 0 No current facility-administered medications for this visit. PAST SURGICAL HISTORY Procedure Laterality Date APPENDECTOMY DELIVERY ONLY No family history on file. Social History Tobacco Use Smoking status: Every Day Packs/day: 0.50 Years: 5.00 Additional pack years: 0.00 Total pack years: 2.50 Types: Cigarettes Smokeless tobacco: Never Substance Use Topics Alcohol use: Yes Alcohol/week: 1.0 - 2.0 standard drink of alcohol Types: 1 - 2 Glasses of Wine (5oz) per week Drug use: No Objective BP 122/72 Pulse 112 Temp 36.2 ?C (97.2 ?F) Resp 18 Wt 84.3 kg (185 lb 13.6 oz) LMP 07/20/2023 (Approximate) SpO2 98% No BMI 31.90 kg/m? Physical Exam Vitals reviewed. Constitutional: Appearance: Normal appearance. HENT: Head: Normocephalic and atraumatic. Right Ear: Tympanic membrane, ear canal and external ear normal. Left Ear: Tympanic membrane, ear canal and external ear normal. Nose: Nose normal. Mouth/Throat: Mouth: Mucous membranes are moist. Pharynx: Uvula midline. Pharyngeal swelling, oropharyngeal exudate and posterior oropharyngeal erythema present. No uvula swelling. Tonsils: Tonsillar exudate present. No tonsillar abscesses. 2+ on the right. 2+ on the left. Cardiovascular: Rate and Rhythm: Normal rate and regular rhythm. Heart sounds: Normal heart sounds. Pulmonary: Effort: Pulmonary effort is normal. Breath sounds: Normal breath sounds. Musculoskeletal: Cervical back: Neck supple. Lymphadenopathy: Cervical: Cervical adenopathy present. Skin: General: Skin is warm and dry. Findings: No rash. Neurological: Mental Status: She is alert. Assessment and Plan ASSESSMENT/PLAN: 1. Strep throat - ICD9: 034.0, ICD10: J02.0 - Group A strep molecular testing positive - Amoxicillin for 10 days. - Discussed supportive care treatment with fluids, rest and analgesia. - Contagious dz precautions discussed- including considered contagious until on antibiotics for 24 hours Conrad Garcia PA-C [facility] 08-10-2023 History of Present illness Narrative This note was created using [employer]. Subjective Bhavin Santoro is a 38 year old female. HPI Patient presents with chief complaint of sore throat, headache, body aches over the past 2 days. No fever. Denies significant cough or congestion. Ears are hurting as well. She states some people have been sick at work. Review of Systems Constitutional: Positive for fatigue. Negative for fever. HENT: Positive for ear pain and sore throat. Negative for congestion, rhinorrhea, sinus pressure and sinus pain. Respiratory: Negative for cough and shortness of breath. Cardiovascular: Negative. Gastrointestinal: Negative. Genitourinary: Negative. Musculoskeletal: Positive for myalgias. Neurological: Positive for headaches. All other systems reviewed and are negative. PAST MEDICAL HISTORY Diagnosis Date Epilepsy (HCC) Major depressive disorder, recurrent episode, in full remission (HCC) 05/10/2015 Current Outpatient Medications Medication Sig Dispense Refill venlafaxine HCl (EFFEXOR ORAL) Take by mouth. traZODone (DESYREL) 50 mg tablet Take 1 tablet by mouth daily at bedtime. 30 tablet 5 spironolact/hydrochlorothiazid (SPIRONOLACTON-HYDROCHLOROTHIAZ ORAL) Take by mouth. amoxicillin (AMOXIL) 500 mg capsule Take 1 capsule by mouth two times a day for 10 days. 20 capsule 0 FLUoxetine HCl (PROZAC) 40 mg capsule TAKE 1 CAPSULE BY MOUTH EVERY DAY (Patient not taking: Reported on 08/10/2023) 30 capsule 1 lamoTRIgine (LAMICTAL) 200 mg tablet Take 1.5 tabs AM and 2 tabs PM (Patient not taking: Reported on 08/10/2023) 315 tablet 0 folic acid 1 mg tablet Take 4 tablets by mouth once daily. (Patient not taking: Reported on 08/10/2023) 360 tablet 1 acetaminophen 325 mg-caffeine 40 mg-butalbital 50 mg (FIORICET) per tablet Take 1 tablet by mouth every 8 hours as needed for Headache. (Patient not taking: Reported on 08/10/2023) 30 tablet 1 clonazePAM (KLONOPIN) 1 mg tablet take 1 tablet by mouth four times a day 120 tablet 2 lisdexamfetamine (VYVANSE) 70 mg capsule Take 1 capsule by mouth once daily for 30 days. Earliest Fill Date: 05/27/17 30 capsule 0 FLUoxetine (PROZAC) 20 mg capsule Take 1 capsule by mouth once daily. for two weeks and then increase to two (2) daily (=40 mg ) (Patient not taking: Reported on 08/10/2023) 60 capsule 1 Drospirenone-Ethinyl Estradiol 3-0.03 mg per tablet 1 acetaminophen 325 mg-caffeine 40 mg-butalbital 50 mg (FIORICET) per tablet Take 1 tablet by mouth every 8 hours as needed for Headache. 30 tablet 3 Norethindrone, Contraceptive, (DEBLITANE) 0.35 mg tablet Take 1 tablet by mouth once daily. 0 No current facility-administered medications for this visit. PAST SURGICAL HISTORY Procedure Laterality Date APPENDECTOMY DELIVERY ONLY No family history on file. Social History Tobacco Use Smoking status: Every Day Packs/day: 0.50 Years: 5.00 Additional pack years: 0.00 Total pack years: 2.50 Types: Cigarettes Smokeless tobacco: Never Substance Use Topics Alcohol use: Yes Alcohol/week: 1.0 - 2.0 standard drink of alcohol Types: 1 - 2 Glasses of Wine (5oz) per week Drug use: No Objective BP 122/72 Pulse 112 Temp 36.2 C (97.2 F) Resp 18 Wt 84.3 kg (185 lb 13.6 oz) LMP 07/20/2023 (Approximate) SpO2 98% No BMI 31.90 kg/m Physical Exam Vitals reviewed. Constitutional: Appearance: Normal appearance. HENT: Head: Normocephalic and atraumatic. Right Ear: Tympanic membrane, ear canal and external ear normal. Left Ear: Tympanic membrane, ear canal and external ear normal. Nose: Nose normal. Mouth/Throat: Mouth: Mucous membranes are moist. Pharynx: Uvula midline. Pharyngeal swelling, oropharyngeal exudate and posterior oropharyngeal erythema present. No uvula swelling. Tonsils: Tonsillar exudate present. No tonsillar abscesses. 2+ on the right. 2+ on the left. Cardiovascular: Rate and Rhythm: Normal rate and regular rhythm. Heart sounds: Normal heart sounds. Pulmonary: Effort: Pulmonary effort is normal. Breath sounds: Normal breath sounds. Musculoskeletal: Cervical back: Neck supple. Lymphadenopathy: Cervical: Cervical adenopathy present. Skin: General: Skin is warm and dry. Findings: No rash. Neurological: Mental Status: She is alert. Assessment and Plan ASSESSMENT/PLAN: 1. Strep throat - ICD9: 034.0, ICD10: J02.0 - Group A strep molecular testing positive - Amoxicillin for 10 days. - Discussed supportive care treatment with fluids, rest and analgesia. - Contagious dz precautions discussed- including considered contagious until on antibiotics for 24 hours Conrad Garcia PA-C documented in this encounter [facility] 01-06-2014 History of Past i llness Narrative Problem Noted Date Diagnosed Date Resolved Date Anxiety 01/06/2014 01/06/2014 documented as of this encounter (statuses as of 03/02/2023) [facility] History of Past illness Narrative* Problem Noted Date Diagnosed Date Resolved Date Anxiety 01/06/2014 01/06/2014 documented as of this encounter (statuses as of 08/10/2023) [facility] Diagnosis Encounter for immunization- Primary Need for other specified prophylactic vaccination against single bacterial disease [facility] Diagnosis Lower resp. tract infection- Primary Other diseases of respiratory system, not elsewhere classified Sore throat Acute pharyngitis Acute cough Pneumonia exposure Contact with or exposure to other viral diseases [facility] Diagnosis Strep throat- Primary Streptococcal sore throat [facility] Diagnosis Injury of left lower leg, initial encounter- Primary documented in this encounter [facility] for visit Narrative* Diagnostic Procedure Only (Urgent) - Closed Specialty Diagnoses / Procedures Referred By Armen t Referred To Contact XR IMAGING Diagnoses Injury of left lower leg, initial encounter Procedures XR TIBIA FIBULA 2V AP/LAT LEFT RADIOLOGIC EXAMINATION TIBIA & FIBULA 2 VIEWS Gutierrez Ahumada APRN.[employer] [address] [place] [address] [place] [address] Referral ID Status Reason Start Date Expiration Date V isits Requested Visits Authorized [id number] Closed Auto-Generate d Referral 04/08/2024 05/08/2025 1 1 [facility] Summary Purpose Family History No Family History Records FoundNo Family History Records FoundNo Family History Records Found Advance Directives No Advanced Directives Records FoundNo Advanced Directives Records FoundNo Advanced Directives Records Found Reason for Referral Specialty Diagnoses / Procedures Referred By Contac t Referred To Contact Orthopedics Diagnoses Injury of left lower leg, initial encounter Procedures CONSULT TO ORTHOPAEDICS Gutierrez Ahumada APRN.[employer] [address] [place] [address] Referral ID Status Reason Start Date Expiration Date Visits Requested Visits Authorized [id number] Ref Not Required PCP Requested Referral 04/08/2024 04/08/2025 1 1 Specialty Diagnoses / Procedures Referred By Contac t Referred To Contact XR IMAGING Diagnoses Injury of left lower leg, initial encounter Procedures XR TIBIA FIBULA 2V AP/LAT LEFT RADIOLOGIC EXAMINATION TIBIA & FIBULA 2 VIEWS Gutierrez Ahumada APRN.[employer] [address] [place] [address] [place] [address] Referral ID Status Reason Start Date Expiration Date V isits Requested Visits Authorized [id number] Closed Auto-Generate d Referral 04/08/2024 05/08/2025 1 1 Additional Source Comments INFORMATION SOURCE (unrecogn ized section and content) DATE CREATED AUTHOR 10/26/2017 [facility] DATE CREATED AUTHOR AUTHOR'S ORGANIZ ATION 04/09/2024 [facility] DATE CREATED AUTHOR AUTHOR'S ORGANIZ ATION 03/11/2025 [facility] Source Comments (unrecognize d section and content) In the event this informatio n is protected by the Federal Confidentiality of Alcohol and Drug Abuse Patient Records regulations: The Federal rules restrict any use of the information to criminally investigate or prosecute any alcohol or drug abuse patient.[facility] the event this information is protected by the Federal Confidentiality of Alcohol and Drug Abuse Patient Records regulations: The Federal rules restrict any use of the information to criminally investigate or prosecute any alcohol or drug abuse patient.[facility] the event this information is protected by the Federal Confidentiality of Alcohol and Drug Abuse Patient Records regulations: The Federal rules restrict any use of the information to criminally investigate or prosecute any alcohol or drug abuse patient.[facility] the event this information is protected by the Federal Confidentiality of Alcohol and Drug Abuse Patient Records regulations: The Federal rules restrict any use of the information to criminally investigate or prosecute any alcohol or drug abuse patient.[facility] the event this information is protected by the Federal Confidentiality of Alcohol and Drug Abuse Patient Records regulations: The Federal rules restrict any use of the information to criminally investigate or prosecute any alcohol or drug abuse patient.[facility] the event this information is protected by the Federal Confidentiality of Alcohol and Drug Abuse Patient Records regulations: The Federal rules restrict any use of the information to criminally investigate or prosecute any alcohol or drug abuse patient.[facility] the event this information is protected by the Federal Confidentiality of Alcohol and Drug Abuse Patient Records regulations: The Federal rules restrict any use of the information to criminally investigate or prosecute any alcohol or drug abuse patient.[facility] Care Teams (unrecognized sec tion and content) Operations Advisor Relationship Specialty Start Date End Date Anna Whittaker MD PCP - General Family Medicine 07/03/13 Operations Advisor Relationship Specialty Start Date End Date Anna Whittaker MD PCP - General Family Medicine 07/03/13 Operations Advisor Relationship Specialty Start Date End Date Duc Day DO [address] [place] [address] PCP - General Family Medicine 02/25/24 Operations Advisor Relationship Specialty Start Date End Date Duc Day DO [address] [place], [place] [id number] PCP - General Family Medicine 02/25/24 Operations Advisor Relationship Specialty Start Date End Date Anna Whittaker MD PCP - General Family Medicine 07/03/13 Operations Advisor Relationship Specialty Start Date End Date Duc Day DO [address] [place] [id number] PCP - General Family Medicine 02/25/24 Operations Advisor Relationship Specialty Start Date End Date Duc Day DO [address] [place], [place] [address] PCP - General Family Medicine 02/25/24 Reason for Visit (unrecogniz ed section and content) Reason Comments Cough Cough, ST, GOMEZ and fe anthony x 1 day Reason Comments Sore Throat Bodyaches and headac he x2 days Reason Comments left calf pain Douglas a pop last nig ht playing basket-ball FOR RECORDS PERTAINING TO PATIENTS WHO ARE OR HAVE BEEN ENROLLED IN A CHEMICAL DEPENDENCY/SUBSTANCEABUSE PROGRAM, SOME INFORMATION MAY BE OMITTED. This clinical summary was aggregated from multiple sources. Caution should be exercised in using it in the provision of clinical care. This summary normalizes information from multiple sources, and as a consequence, information in this document may materially change the coding, format and clinical context of patient data. In addition, data may be omitted in some cases. CLINICAL DECISIONS SHOULD BE BASED ON THE PRIMARY CLINICAL RECORDS. [facility] [employer] [facility]. provides no warranty or guarantee of the accuracy or completeness of information in this document.
== END | disposition home or self-care (01) ==
LOC: PSN 08:42
PROVIDERS: PCP Family Medicine
DX: F90.0 Attention-deficit hyperactivity disorder, predominantly inattentive type (principal)
CPT/HCPCS: 93005